=== PATIENT | female | born 1995 | race African-American/Black ===

== ENCOUNTER 2017-08-27 10:52 | Emergency (ER) | payer SELFPAY ==
[~2017-08-27] VITALS: Ht 154.9 cm; Wt 60.0 kg
[2017-08-27 10:55] VITALS: TEMP 36.7; Ht 154.9 cm; Wt 60.0 kg
[2017-08-27] MEDS ORDERED: BCPILLS PO (11:07)
[2017-08-27] MEDS ORDERED: DIPH25CA5 PO (11:09)
[2017-08-27] MEDS ORDERED: ACETAMINOPHEN 500 MG TAB PO STA (11:20)
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
--- NOTE | 2017-08-27 12:08 | DIAGNOSTIC IMAGING REPORT ---
CT FACIAL BONES-MXILLOFAC WITHOUT CT DOSE: 768.72 mGy.cm CLINICAL HISTORY: Left orbital pain status post trauma COMPARISON STUDY: No previous studies for comparison. TECHNIQUE: Helical images were acquired in the transverse plane. The study was reviewed and analyzed on the independent 3-D workstation. A dose lowering technique was utilized adhering to the principles of ALARA. The pterygoid plates appear intact. The zygomatic arches appear intact. The globes appear intact. There is no evidence of orbital emphysema. There is left-sided periorbital edema. There is a left orbital floor fracture with 8 mm of depression. There is herniation of orbital fat into the left maxillary sinus. There is a left maxillary sinus air-fluid level. The lamina papyracea appears intact. The mandibular condyles appear intact. IMPRESSION: 1. Depressed (8 mm) left orbital floor fracture with herniation of orbital fat into the left maxillary sinus. 2. No additional facial fractures identified 3. Mild left periorbital edema Electronically signed by: Mateo Ann M.D. 08/27/2017 12:07 PM Dictated Date/Time: 08/27/2017 12:04 PM
--- NOTE | 2017-08-27 12:38 | DIAGNOSTIC IMAGING REPORT ---
L HAND MIN 3 VIEWS ROUTINE CLINICAL HISTORY: Left hand pain status post trauma COMPARISON: None. DISCUSSION: There is a nondisplaced acute intra-articular fracture involving the base of the distal phalanx of the third finger. No additional fractures are visualized. IMPRESSION: Acute nondisplaced intra-articular fracture involving the radial base of the distal phalanx of the third finger Electronically signed by: Mateo Ann M.D. 08/27/2017 12:36 PM Dictated Date/Time: 08/27/2017 12:35 PM
--- NOTE | 2017-08-27 12:38 | DIAGNOSTIC IMAGING REPORT ---
R FOREARM 2 VIEWS ROUTINE CLINICAL HISTORY: Right forearm pain status post trauma COMPARISON: None. DISCUSSION: No fractures or dislocations are visualized. IMPRESSION: No fractures or dislocations identified. Electronically signed by: Mateo Ann M.D. 08/27/2017 12:37 PM Dictated Date/Time: 08/27/2017 12:37 PM
--- NOTE | 2017-08-27 12:39 | DIAGNOSTIC IMAGING REPORT ---
R KNEE 3 VIEWS CLINICAL HISTORY: Right knee pain status post trauma COMPARISON: None. DISCUSSION: No fractures or dislocations are visualized. IMPRESSION: No fractures identified. Electronically signed by: Mateo Ann M.D. 08/27/2017 12:37 PM Dictated Date/Time: 08/27/2017 12:37 PM
[2017-08-27] MEDS ORDERED: OXYCODONE HCL IR 5 MG TAB (IMMEDIATE RELEASE) PO STA (12:40)
[2017-08-27] MEDS ORDERED: AMOXICIL/CLAVU 875MG HOME PACK PO STA (13:44)
[2017-08-27] MEDS ORDERED: AMOXICILLIN/CLAVULANATE TAB 875 MG TAB PO STA (13:44)
[2017-08-27] MEDS ORDERED: CIPROFLOXACIN HCL 0.3% OP SOLN 2.5 ML BTL OP STA (13:45)
[2017-08-27] MEDS ORDERED: AMOX875T PO (13:47)
[2017-08-27] MEDS ORDERED: HYDR-5688 PO (13:47)
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
[2017-08-27 14:34] VITALS: BP 127/76; PULSE 92; O2SAT 96
== END 2017-08-27 14:30 | disposition home or self-care (01) ==
LOC: C.EDB 10:55 → C.EDD 14:30
DX: S02.32XA Fracture of orbital floor, left side, initial encounter for closed fracture (principal); S62.668A Nondisplaced fracture of distal phalanx of other finger, initial encounter for closed fracture; H57.12 Ocular pain, left eye; S50.11XA Contusion of right forearm, initial encounter; S80.01XA Contusion of right knee, initial encounter; S80.02XA Contusion of left knee, initial encounter; S01.81XA Laceration without foreign body of other part of head, initial encounter; S05.02XA Injury of conjunctiva and corneal abrasion without foreign body, left eye, initial encounter; Y04.0XXA Assault by unarmed brawl or fight, initial encounter

== ENCOUNTER 2019-12-17 17:31 | Inpatient (IN) ==
[2019-12-17] MEDS ORDERED: OXYTOCIN 30 UNITS/500 ML BAG IV PRN (17:59)
[2019-12-17 18:55] LABS: Hematocrit (blood only) 39.6 % (37-47); Mean Corpuscular Hemoglobin 30.3 pg (25-34); Mean Corpuscular Hgb Conc 32.8 g/dL (32-36); Mean Corpuscular Volume 92.3 fL (80-100); Mean Platelet Volume 12.1 fL (7.4-10.4); Platelet Count 130 K/uL (130-400); Platelet Estimate Normal (Normal); RDW Coefficient of Variation 15.2 % (11.5-14.5); Red Blood Count 4.29 M/uL (4.2-5.4)
[2019-12-17] MEDS: LACTATED RINGER'S 1,000 ML IV PRN ×2 (19:15→22:30)
[2019-12-17] MEDS ORDERED: ePHEDrine sulfate 50 MG/ML AMP ONE (22:15)
[2019-12-17] MEDS ORDERED: BUPIVACAINE 0.25% 30 ML VIAL ONE (22:15)
[2019-12-17] MEDS ORDERED: fentaNYL 2MCG/ML ROPIV 1.25MG/ML 100 ML BAG EPI ONE (22:16)
[2019-12-17] MEDS ORDERED: fentaNYL citrate 100 MCG/2 ML VIAL ONE (22:16)
--- NOTE | 2019-12-17 22:18 | Obstetrical Progress Note ---
Date of Service December 17, 2019 Assessment & Plan Admission and Anticipated Discharge Date Admission Date: December 17, 2019 Subjective Met pt Reviewed PNC with pt and spouse /-1 FHr CAT1 Ctx 2-4mins Results & Data ([facility]) Vital Signs (Past 12 Hours) Vital Signs Temp Pulse Resp BP Pulse Ox 12/17/19 22:12 107 H 97 12/17/19 22:07 106 H 99 12/17/19 21:30 18 12/17/19 21:00 37.0 C 18 12/17/19 20:30 18 12/17/19 19:53 18 12/17/19 19:17 37.0 C 18 12/17/19 19:12 37.0 C 90 18 134/84 12/17/19 18:17 98 H 136/99 12/17/19 18:00 37.0 C 98 H 20 136/99
--- NOTE | 2019-12-17 23:00 | Anesthesiology Consultation ---
Date of Service December 17, 2019 Assessment & Plan (1) Encounter for pre-operative examination: Chart Review Chart Review: Patient NOT seen in Pre Admission Testing and Acceptable Risk for Labor Epidural Consults Requested none ASA ASA2 Proposed Anesthesia Anesthesia Type: Labor Epidural Risk / Benefits Reviewed With: PT / POA / Parent / Guardian, Accepts Plan and Informed Consent Obtained History Height/Weight Height: 5 ft 1 in Weight: 95.708 kg Allergies Allergy/AdvReac Type Severity Reaction Status Date / Time No Known Drug Allergies Allergy Unknown Verified 11/25/19 20:34 Medications Home Medications Medication Instructions Recorded Confirmed Last Taken magnesium oxide 400 mg PO HS #30 tab 09/21/19 12/17/19 Unknown PNV cmb#95-ferrous fumarate-FA 1 tab PO DAILY 11/25/19 12/17/19 Unknown [] valacyclovir [Valtrex] 500 mg PO DIRECTED 11/25/19 12/17/19 12/17/19 08:00 Active Medications Generic Name Dose Route Start Last Admin Trade Name Freq PRN Reason Stop Dose Admin Lactated Ringer's 1,000 mls @ 125 mls/hr 12/17/19 17:59 12/17/19 22:30 Lr IV 12/19/19 17:58 125 mls/hr .Q8H PRN Administration L&D Protocol Protocol NPO Date Last Intake of Fluids: 12/17/19 Time Last Intake of Fluids: 22:58 Date Last Intake of Solids: 12/17/19 Time Last Intake of Solids: 16:30 Past Medical History Medical History Adopted Hx of herpes genitalis Numbness of face LEFT BOTTOM - PER PT HAS BEEN NUMB SINCE WISDOM TOOTH EXTRACTIION Seasonal allergies Exercise / Class Metabolic Activity II 4-5 Yardwork/Stairs/Walk up hill Past Surgical History Surgical History Hx of wisdom tooth extraction S/P dilation and curettage Dr. Hassan. S/P MAB Past Anesthesia History No Hx of Anesthesia Complications History of PONV No Hx of PONV Social History Smoking Status: Never smoker Hx Alcohol Use: No Alcohol type: beer, wine and hard liquor alcohol intake frequency: a few times a month Hx Substance Use: No substance use type: does not use Last Used Substance: Days (ago) Review of Systems Negative for chest pain or shortness of breath. Patient denies active symptoms of GERD. Patient denies history of abnormal bleeding or bleeding disorder. Patient denies active use of anticoagulants other than low dose aspirin. Patient denies numbness, tingling or weakness in lower extremities. Physical Exam Vital Signs Last Vital Signs Temp 37.0 C 12/17/19 21:00 Pulse 104 H 12/17/19 22:56 Resp 18 12/17/19 22:00 BP 134/84 12/17/19 19:12 Pulse Ox 97 12/17/19 22:56 Constitutional not obese (Gravid uterus) ENMT Mouth: no TMJ abnormality and oral opening not small Thyromental Distance: > or= 3.5 Finger Breadths Mallampati Class: II Neck normal visual inspection; neck extension not limited Respiratory normal respiratory effort Auscultation: lungs clear to auscultation bilaterally Cardiovascular Rate/Rhythm: regular rate and regular rhythm Heart Sounds: no murmur Neurologic moves all extremities Motor/Sensory: no sensory deficit Psychiatric Orientation: alert and oriented x 3 Testing Laboratory Results 12/17/19 18:13
[2019-12-17] MEDS ORDERED: ONDANSETRON INJ 2 MG/ML 2 ML VIAL IV PRN (23:39)
[2019-12-17] MEDS ORDERED: fentaNYL 2MCG/ML ROPIV 1.25MG/ML 100 ML BAG EPI PRN (23:39)
[2019-12-17] MEDS ORDERED: ePHEDrine sulfate 50 MG/ML AMP IV PRN (23:39)
[2019-12-17] MEDS ORDERED: DiphenhydrAMINE HCL 50 MG/ML VIAL IV PRN (23:39)
[2019-12-17] MEDS ORDERED: NALOXONE HCL 1 MG in SODIUM CHLORIDE 0.9% 1000ML 1,000 ML IV PRN (23:39)
[2019-12-17] MEDS ORDERED: NALOXONE HCL 0.4 MG/1 ML VIAL/CARP IV PRN (23:39)
--- NOTE | 2019-12-18 | Obstetrical Progress Note ---
Date of Service December 17, 2019 Assessment & Plan Admission and Anticipated Discharge Date Admission Date: December 17, 2019 Subjective Pt doing well No complaints Epidural analgesia in place FHR; CAT1 Ctx; 1-3 VE; 4cm/90/-1 Unchanged since admission AROM- clear Results & Data ([facility]) Vital Signs (Past 12 Hours) Vital Signs Temp Pulse Resp BP Pulse Ox 12/17/19 23:57 100 H 133/65 12/17/19 23:56 99 H 98 12/17/19 23:51 112 H 98 12/17/19 23:46 105 H 98 12/17/19 23:41 113 H 127/59 L 98 12/17/19 23:37 122 H 126/60 12/17/19 23:36 120 H 98 12/17/19 23:35 114 H 136/63 12/17/19 23:33 37.2 C 18 12/17/19 23:31 106 H 98 12/17/19 23:30 112 H 120/60 12/17/19 23:28 116 H 131/60 12/17/19 23:27 111 H 125/58 L 12/17/19 23:26 115 H 99 12/17/19 23:24 117 H 119/56 L 12/17/19 23:22 126 H 132/58 L 12/17/19 23:21 123 H 98 12/17/19 23:20 125 H 139/68 12/17/19 23:16 133 H 99 12/17/19 23:11 129 H 99 12/17/19 23:06 118 H 99 12/17/19 23:01 108 H 99 12/17/19 22:56 104 H 97 12/17/19 22:51 103 H 98 12/17/19 22:46 107 H 98 12/17/19 22:37 104 H 98 12/17/19 22:32 94 H 97 12/17/19 22:30 18 12/17/19 22:27 107 H 97 12/17/19 22:22 112 H 98 12/17/19 22:17 96 H 98 12/17/19 22:12 107 H 97 12/17/19 22:07 106 H 99 12/17/19 22:00 18 12/17/19 21:30 18 12/17/19 21:00 37.0 C 12/17/19 20:30 18 12/17/19 19:53 18 12/17/19 19:17 37.0 C 18 12/17/19 19:12 37.0 C 90 18 134/84 12/17/19 18:17 98 H 136/99 12/17/19 18:00 37.0 C 98 H 20 136/99
[2019-12-18] MEDS ORDERED: ACETAMINOPHEN 325 MG TAB PO PRN (04:33)
[2019-12-18] MEDS ORDERED: ACETAMINOPHEN 325 MG TAB ONE (04:36)
[2019-12-18] MEDS: LACTATED RINGER'S 1,000 ML IV PRN (04:47)
[2019-12-18] MEDS ORDERED: CITRIC ACID/SODIUM CITRATE 15 ML UDC PO SCH (06:00)
[2019-12-18] MEDS ORDERED: CEFAZOLIN 2000MG 2,000 MG/15 ML SYR IV SCH (06:00)
--- NOTE | 2019-12-18 06:26 | Obstetrical Progress Note ---
Date of Service December 18, 2019 Assessment & Plan Admission and Anticipated Discharge Date Admission Date: December 17, 2019 Subjective Pt doing well Ctx 1-3mins VE /-2 unchanged after 12 hrs temp is now 100.0 FHr; CATII A/P FTP discussed c/sec with pt pt agrees 'consent obtained Results & Data ([facility]) Vital Signs (Past 12 Hours) Vital Signs Temp Pulse Resp BP Pulse Ox 12/18/19 06:21 119 H 97 12/18/19 06:16 118 H 98 12/18/19 06:11 107 H 97 12/18/19 06:10 108 H 112/56 L 12/18/19 06:06 109 H 97 12/18/19 06:01 112 H 97 12/18/19 06:00 18 12/18/19 05:57 106 H 116/58 L 12/18/19 05:56 111 H 97 12/18/19 05:51 108 H 97 12/18/19 05:46 110 H 97 12/18/19 05:41 110 H 153/64 H 96 12/18/19 05:36 114 H 97 12/18/19 05:31 108 H 97 12/18/19 05:30 37.5 C 18 12/18/19 05:26 112 H 97 12/18/19 05:25 116 H 134/51 L 12/18/19 05:21 112 H 98 12/18/19 05:16 108 H 98 12/18/19 05:11 100 H 98 12/18/19 05:10 102 H 108/68 12/18/19 05:06 104 H 98 12/18/19 05:01 105 H 98 12/18/19 05:00 18 12/18/19 04:57 101 H 117/54 L 12/18/19 04:56 100 H 98 12/18/19 04:51 101 H 98 12/18/19 04:46 106 H 99 12/18/19 04:42 101 H 119/63 12/18/19 04:41 101 H 99 12/18/19 04:36 111 H 99 12/18/19 04:31 114 H 97 12/18/19 04:30 18 12/18/19 04:28 113 H 122/62 12/18/19 04:26 111 H 100 12/18/19 04:22 37.8 C H 07/29/20 04:21 111 H 98 12/18/19 04:16 118 H 98 12/18/19 04:12 112 H 126/66 12/18/19 04:11 112 H 97 12/18/19 04:06 115 H 97 12/18/19 04:01 113 H 97 12/18/19 04:00 18 12/18/19 03:56 107 H 126/60 97 12/18/19 03:51 114 H 96 12/18/19 03:46 113 H 97 12/18/19 03:41 105 H 125/70 98 12/18/19 03:36 109 H 95 12/18/19 03:31 110 H 97 12/18/19 03:30 18 12/18/19 03:27 109 H 132/72 12/18/19 03:26 104 H 97 12/18/19 03:21 113 H 97 12/18/19 03:16 119 H 100 12/18/19 03:11 98 H 133/72 97 12/18/19 03:06 100 H 98 12/18/19 03:01 104 H 98 12/18/19 03:00 18 12/18/19 02:56 104 H 99 12/18/19 02:55 100 H 133/61 12/18/19 02:51 100 H 97 12/18/19 02:46 98 H 99 12/18/19 02:41 105 H 131/72 97 12/18/19 02:36 102 H 97 12/18/19 02:31 103 H 98 12/18/19 02:30 18 12/18/19 02:26 99 H 98 12/18/19 02:25 102 H 135/71 12/18/19 02:21 104 H 98 12/18/19 02:16 101 H 99 12/18/19 02:12 97 H 135/67 12/18/19 02:11 95 H 99 12/18/19 02:06 96 H 99 12/18/19 02:01 106 H 98 12/18/19 02:00 37.2 C 18 12/18/19 01:56 92 H 107/57 L 97 12/18/19 01:51 91 H 97 12/18/19 01:46 86 98 12/18/19 01:41 90 110/58 L 97 12/18/19 01:36 90 97 12/18/19 01:31 92 H 97 12/18/19 01:30 18 12/18/19 01:26 91 H 97 12/18/19 01:25 99 H 103/55 L 12/18/19 01:21 90 97 12/18/19 01:16 89 97 12/18/19 01:12 104 H 110/54 L 12/18/19 01:11 101 H 99 12/18/19 01:06 87 96 12/18/19 01:01 86 97 12/18/19 01:00 18 12/18/19 00:57 98 H 102/53 L 12/18/19 00:56 108 H 96 12/18/19 00:51 99 H 96 12/18/19 00:46 89 97 12/18/19 00:42 86 101/54 L 12/18/19 00:41 94 H 97 12/18/19 00:36 91 H 98 12/18/19 00:31 91 H 97 12/18/19 00:30 18 12/18/19 00:26 77 97 12/18/19 00:25 82 110/52 L 12/18/19 00:21 93 H 98 12/18/19 00:16 107 H 97 12/18/19 00:11 104 H 97 12/18/19 00:10 99 H 124/60 12/18/19 00:06 91 H 98 12/18/19 00:01 106 H 98 12/18/19 00:00 12/17/19 23:57 100 H 133/65 12/17/19 23:56 99 H 98 12/17/19 23:55 18 12/17/19 23:51 112 H 98 12/17/19 23:50 18 12/17/19 23:46 105 H 98 12/17/19 23:45 18 12/17/19 23:41 113 H 127/59 L 98 12/17/19 23:40 18 12/17/19 23:38 18 12/17/19 23:37 122 H 126/60 12/17/19 23:36 120 H 18 98 12/17/19 23:35 114 H 136/63 12/17/19 23:34 18 12/17/19 23:33 37.2 C 18 12/17/19 23:32 18 07/28/20 23:31 106 H 98 12/17/19 23:30 112 H 18 120/60 12/17/19 23:28 116 H 18 131/60 12/17/19 23:27 111 H 125/58 L 12/17/19 23:26 115 H 99 12/17/19 23:24 117 H 119/56 L 12/17/19 23:22 126 H 132/58 L 12/17/19 23:21 123 H 98 12/17/19 23:20 125 H 139/68 12/17/19 23:16 133 H 99 12/17/19 23:11 129 H 99 12/17/19 23:06 118 H 99 12/17/19 23:01 108 H 99 12/17/19 22:56 104 H 97 12/17/19 22:51 103 H 98 12/17/19 22:46 107 H 98 12/17/19 22:37 104 H 98 12/17/19 22:32 94 H 97 12/17/19 22:30 18 12/17/19 22:27 107 H 97 12/17/19 22:22 112 H 98 12/17/19 22:17 96 H 98 12/17/19 22:12 107 H 97 12/17/19 22:07 106 H 99 12/17/19 22:00 18 12/17/19 21:30 18 12/17/19 21:00 37.0 C 18 12/17/19 20:30 18 12/17/19 19:53 18 12/17/19 19:17 37.0 C 18 12/17/19 19:12 37.0 C 90 18 134/84
[2019-12-18] MEDS ORDERED: LIDOCAINE/EPINEPHRINE 2% 1:200,000 20 ML SDV ONE (09:24)
[2019-12-18] MEDS ORDERED: OXYTOCIN 10 UNITS/ML VIAL ONE ×2 (09:24→10:40)
[2019-12-18] MEDS ORDERED: fentaNYL citrate 100 MCG/2 ML VIAL ONE (09:24)
[2019-12-18] MEDS ORDERED: PHENYLEPHRINE 100MCG/ML 5ML SYR ONE (09:44)
[2019-12-18] MEDS ORDERED: MoRPHine SULFATE PF 1 MG/ML 10 ML AMP/VIAL ONE (09:51)
[2019-12-18] MEDS ORDERED: ESMOLOL HCL INJ 10 MG/ML 10ML VIAL IV ONE (10:10)
[2019-12-18] MEDS ORDERED: MEPERIDINE HCL 25 MG/ML CARP/VIAL ONE (10:23)
[2019-12-18] MEDS ORDERED: METOPROLOL TARTRATE 1 MG/ML VIAL IV ONE (10:25)
[2019-12-18] MEDS ORDERED: miSOPROStoL 200 MCG TAB ONE (10:43)
[2019-12-18] MEDS ORDERED: HYDROCORTISONE ACETATE 25 MG SUPP PR PRN (10:53)
[2019-12-18] MEDS ORDERED: DIPHTHERIA/TETANUS/PERTUSSIS 0.5 ML SYR/VIAL IM ONE (10:53)
[2019-12-18] MEDS ORDERED: MAGNESIUM HYDROXIDE SUSP 30 ML UDC PO PRN (10:53)
[2019-12-18] MEDS ORDERED: SENNA 8.6 MG TAB PO PRN (10:53)
[2019-12-18] MEDS ORDERED: SUPERCREAM 0.870% 15 GM JAR EXT PRN (10:53)
[2019-12-18] MEDS ORDERED: BENZOCAINE 20% AER SPR 82.5 GM CAN EXT PRN (10:53)
--- NOTE | 2019-12-18 10:55 | Post Operative Brief Note ---
Immediate Post Op Note v1 Date of Surgery December 18, 2019 Pre & Post Diagnosis Operation Date: 12/18/19 06:40 Pre-Op Diagnosis: Failure to progress. Post-Op Diagnosis: Same as above. Delivery of live male child at 1004. I identified the patient and participated in the time-out.: Yes Procedure Operation Date: 12/18/19 06:40 Actual Procedures p Section in LD(Bilateral) - Gualberto Pelaez MD Surgeon Gualberto Pelaez MD Artificial Breeding Distributor dr vanegas Estimated Blood Loss 600 Findings Consistent with Post-Op Diagnosis Drains Capellan Catheter (placed in labor and delivery)
[2019-12-18] MEDS ORDERED: NALOXONE HCL 0.08 MG in SYRINGE 1.8 ML IV PRN (10:58)
[2019-12-18] MEDS ORDERED: ePHEDrine sulfate 50 MG/ML AMP IV PRN (10:58)
[2019-12-18] MEDS ORDERED: MoRPHine SULFATE PF 1 MG/ML 10 ML AMP/VIAL EPI ONE (10:58)
[2019-12-18] MEDS ORDERED: ONDANSETRON INJ 2 MG/ML 2 ML VIAL IV PRN (10:58)
[2019-12-18] MEDS ORDERED: DiphenhydrAMINE HCL 50 MG/ML VIAL IV PRN (10:58)
[2019-12-18] MEDS ORDERED: HYDROmorphone INJ 0.5 MG/0.5 ML SYR IV PRN (10:58)
[2019-12-18] MEDS ORDERED: LACTATED RINGER'S 500 ML IV PRN (10:58)
[2019-12-18] MEDS ORDERED: NALOXONE HCL 0.4 MG/1 ML VIAL/CARP IV PRN (10:58)
[2019-12-18] MEDS ORDERED: NALOXONE HCL 1 MG in SODIUM CHLORIDE 0.9% 1000ML 1,000 ML IV PRN (10:58)
[2019-12-18] MEDS ORDERED: NO NARCOTICS OR SEDATIVES SCH (11:00)
[2019-12-18] MEDS ORDERED: SODIUM CHLORIDE 0.9% 1000ML 1,000 ML IV SCH (11:00)
[2019-12-18] MEDS ORDERED: LACTATED RINGER'S 1,000 ML IV SCH ×2 (11:00→12:45)
[2019-12-18] MEDS ORDERED: OXYTOCIN 10 UNITS/ML VIAL IM ONE ×2 (12:21→12:28)
--- NOTE | 2019-12-18 12:24 | Anesthesiology Progress Note ---
Date of Service December 18, 2019 Anesthesia Post Procedure Vital Signs Vital Signs: Temp Pulse Resp BP Pulse Ox 12/18/19 12:20 113 H 98 12/18/19 12:15 106 H 142/73 H 100 12/18/19 12:10 121 H 97 12/18/19 12:05 115 H 144/78 H 97 12/18/19 12:00 118 H 98 12/18/19 11:55 127 H 20 143/82 H 95 12/18/19 11:50 113 H 98 12/18/19 11:45 127 H 20 102/70 97 12/18/19 11:44 116 H 86 L 12/18/19 11:39 109 H 100 12/18/19 11:35 125 H 16 131/57 L 12/18/19 11:34 119 H 91 12/18/19 11:29 113 H 94 12/18/19 11:25 111 H 20 132/60 12/18/19 11:24 112 H 100 12/18/19 11:19 118 H 100 12/18/19 11:15 114 H 18 132/69 12/18/19 11:14 116 H 100 12/18/19 11:09 115 H 100 12/18/19 11:05 120 H 20 139/59 L 12/18/19 11:04 124 H 100 12/18/19 10:59 114 H 100 12/18/19 10:55 37.2 C 116 H 20 113/54 L 100 12/18/19 10:54 116 H 99 12/18/19 09:31 115 H 98 12/18/19 09:26 114 H 134/81 98 12/18/19 09:21 107 H 96 12/18/19 09:16 108 H 97 12/18/19 09:11 110 H 138/72 98 12/18/19 09:10 37.8 C H 18 12/18/19 09:06 122 H 98 12/18/19 09:01 117 H 98 12/18/19 08:56 106 H 98 12/18/19 08:55 116 H 125/64 12/18/19 08:51 114 H 98 12/18/19 08:46 110 H 97 12/18/19 08:42 101 H 128/71 12/18/19 08:41 105 H 97 12/18/19 08:36 105 H 97 12/18/19 08:31 110 H 98 12/18/19 08:26 112 H 98 12/18/19 08:25 106 H 125/62 12/18/19 08:21 102 H 98 12/18/19 08:16 103 H 98 12/18/19 08:11 99 H 98 12/18/19 08:10 103 H 121/55 L 12/18/19 08:06 104 H 97 12/18/19 08:01 104 H 97 12/18/19 07:57 99 H 127/61 12/18/19 07:56 100 H 98 12/18/19 07:51 98 H 98 12/18/19 07:46 107 H 97 12/18/19 07:42 101 H 129/61 12/18/19 07:41 102 H 97 12/18/19 07:36 107 H 98 12/18/19 07:31 104 H 98 12/18/19 07:27 99 H 122/59 L 12/18/19 07:26 100 H 97 12/18/19 07:21 105 H 97 12/18/19 07:16 111 H 98 12/18/19 07:11 110 H 99 12/18/19 07:10 37.7 C H 116 H 16 128/80 12/18/19 07:06 109 H 97 12/18/19 07:01 115 H 98 12/18/19 07:00 18 12/18/19 06:56 115 H 98 12/18/19 06:51 104 H 98 12/18/19 06:46 115 H 98 12/18/19 06:41 118 H 111/53 L 97 12/18/19 06:36 118 H 97 12/18/19 06:31 120 H 98 12/18/19 06:30 18 12/18/19 06:26 125 H 136/69 97 12/18/19 06:21 119 H 97 12/18/19 06:16 118 H 98 12/18/19 06:11 107 H 97 12/18/19 06:10 108 H 112/56 L 12/18/19 06:06 109 H 97 12/18/19 06:01 112 H 97 12/18/19 06:00 18 12/18/19 05:57 106 H 116/58 L 12/18/19 05:56 111 H 97 12/18/19 05:51 108 H 97 12/18/19 05:46 110 H 97 12/18/19 05:41 110 H 153/64 H 96 12/18/19 05:36 114 H 97 12/18/19 05:31 108 H 97 12/18/19 05:30 37.5 C 18 12/18/19 05:26 112 H 97 12/18/19 05:25 116 H 134/51 L 12/18/19 05:21 112 H 98 12/18/19 05:16 108 H 98 12/18/19 05:11 100 H 98 12/18/19 05:10 102 H 108/68 12/18/19 05:06 104 H 98 12/18/19 05:01 105 H 98 12/18/19 05:00 18 12/18/19 04:57 101 H 117/54 L 12/18/19 04:56 100 H 98 12/18/19 04:51 101 H 98 12/18/19 04:46 106 H 99 12/18/19 04:42 101 H 119/63 12/18/19 04:41 101 H 99 12/18/19 04:36 111 H 99 12/18/19 04:31 114 H 97 12/18/19 04:30 18 12/18/19 04:28 113 H 122/62 12/18/19 04:26 111 H 100 12/18/19 04:22 37.8 C H 12/18/19 04:21 111 H 98 12/18/19 04:16 118 H 98 12/18/19 04:12 112 H 126/66 12/18/19 04:11 112 H 97 12/18/19 04:06 115 H 97 12/18/19 04:01 113 H 97 12/18/19 04:00 18 12/18/19 03:56 107 H 126/60 97 12/18/19 03:51 114 H 96 12/18/19 03:46 113 H 97 12/18/19 03:41 105 H 125/70 98 12/18/19 03:36 109 H 95 12/18/19 03:31 110 H 97 12/18/19 03:30 18 12/18/19 03:27 109 H 132/72 12/18/19 03:26 104 H 97 12/18/19 03:21 113 H 97 12/18/19 03:16 119 H 100 12/18/19 03:11 98 H 133/72 97 12/18/19 03:06 100 H 98 12/18/19 03:01 104 H 98 12/18/19 03:00 18 12/18/19 02:56 104 H 99 12/18/19 02:55 100 H 133/61 12/18/19 02:51 100 H 97 12/18/19 02:46 98 H 99 12/18/19 02:41 105 H 131/72 97 12/18/19 02:36 102 H 97 12/18/19 02:31 103 H 98 12/18/19 02:30 18 12/18/19 02:26 99 H 98 12/18/19 02:25 102 H 135/71 12/18/19 02:21 104 H 98 12/18/19 02:16 101 H 99 12/18/19 02:12 97 H 135/67 12/18/19 02:11 95 H 99 12/18/19 02:06 96 H 99 12/18/19 02:01 106 H 98 12/18/19 02:00 37.2 C 18 12/18/19 01:56 92 H 107/57 L 97 12/18/19 01:51 91 H 97 12/18/19 01:46 86 98 12/18/19 01:41 90 110/58 L 97 12/18/19 01:36 90 97 12/18/19 01:31 92 H 97 12/18/19 01:30 18 12/18/19 01:26 91 H 97 12/18/19 01:25 99 H 103/55 L 12/18/19 01:21 90 97 12/18/19 01:16 89 97 12/18/19 01:12 104 H 110/54 L 12/18/19 01:11 101 H 99 12/18/19 01:06 87 96 12/18/19 01:01 86 97 12/18/19 01:00 18 12/18/19 00:57 98 H 102/53 L 12/18/19 00:56 108 H 96 12/18/19 00:51 99 H 96 12/18/19 00:46 89 97 12/18/19 00:42 86 101/54 L 12/18/19 00:41 94 H 97 12/18/19 00:36 91 H 98 12/18/19 00:31 91 H 97 12/18/19 00:30 18 12/18/19 00:26 77 97 12/18/19 00:25 82 110/52 L 12/18/19 00:21 93 H 98 12/18/19 00:16 107 H 97 12/18/19 00:11 104 H 97 12/18/19 00:10 99 H 124/60 12/18/19 00:06 91 H 98 12/18/19 00:01 106 H 98 12/18/19 00:00 18 12/17/19 23:57 100 H 133/65 12/17/19 23:56 99 H 98 12/17/19 23:55 18 12/17/19 23:51 112 H 98 12/17/19 23:50 18 12/17/19 23:46 105 H 98 12/17/19 23:45 18 12/17/19 23:41 113 H 127/59 L 98 12/17/19 23:40 18 12/17/19 23:38 18 12/17/19 23:37 122 H 126/60 12/17/19 23:36 120 H 18 98 12/17/19 23:35 114 H 136/63 12/17/19 23:34 18 12/17/19 23:33 37.2 C 18 12/17/19 23:32 18 12/17/19 23:31 106 H 98 12/17/19 23:30 112 H 18 120/60 12/17/19 23:28 116 H 18 131/60 12/17/19 23:27 111 H 125/58 L 12/17/19 23:26 115 H 99 12/17/19 23:24 117 H 119/56 L 12/17/19 23:22 126 H 132/58 L 12/17/19 23:21 123 H 98 12/17/19 23:20 125 H 139/68 12/17/19 23:16 133 H 99 12/17/19 23:11 129 H 99 12/17/19 23:06 118 H 99 12/17/19 23:01 108 H 99 12/17/19 22:56 104 H 97 12/17/19 22:51 103 H 98 12/17/19 22:46 107 H 98 12/17/19 22:37 104 H 98 12/17/19 22:32 94 H 97 12/17/19 22:30 18 12/17/19 22:27 107 H 97 12/17/19 22:22 112 H 98 12/17/19 22:17 96 H 98 12/17/19 22:12 107 H 97 12/17/19 22:07 106 H 99 12/17/19 22:00 18 12/17/19 21:30 18 12/17/19 21:00 37.0 C 18 12/17/19 20:30 18 12/17/19 19:53 18 12/17/19 19:17 37.0 C 18 12/17/19 19:12 37.0 C 90 18 134/84 12/17/19 18:17 98 H 136/99 12/17/19 18:00 37.0 C 98 H 20 136/99 Pain Intensity Abdomen: Pain Intensity: 1 Transfer of Care Handoff Completed per policy Notes Mental Status: alert / awake / arousable Patient Amnestic to Procedure: Yes Nausea / Vomiting: adequately controlled Pain: adequately controlled Airway Patency, RR, SpO2: stable & adequate BP & HR: stable & adequate Hydration State: stable & adequate Neuraxial Anesthesia: was administered and sensory block is resolving Anesthetic Complications: no major complications apparent and Pt Satisfied with anesthetic care
[2019-12-18] MEDS ORDERED: miSOPROStoL 200 MCG TAB PR ONE (12:27)
[2019-12-18] MEDS ORDERED: miSOPROStoL 200 MCG TAB PR SCH (12:30)
[2019-12-18] MEDS: OXYTOCIN 20 UNITS in LACTATED RINGER'S 1,000 ML IV SCH ×2 (13:29→21:26)
--- NOTE | 2019-12-18 13:38 | Operative Report (OR) ---
DATE OF OPERATION: 12/18/2019 INDICATION FOR SURGERY: A 24-year-old at term who presented to labor and delivery in labor. On arrival to labor and delivery she was 4 cm dilated. The patient continued to have contractions; artificial rupture of membranes was performed. The patient remained 4 cm for 12 hours. Decision was therefore made to perform section for failure to progress. PREOPERATIVE DIAGNOSES: Failure to progress. POSTOPERATIVE DIAGNOSES: Same plus transverse lie. SURGEON: Gualberto Pelaez MD ASSOCIATE TECHNICIAN: Dr. Sharp. ESTIMATED BLOOD LOSS: 600 mL. INTRAVENOUS FLUIDS: 3600 mL. URINE OUTPUT: 200 mL clear urine at end of procedure. SURGERY: section via Pfannenstiel. COMPLICATIONS: None. DRAINS: Capellan catheter. FINDINGS: Live infant in transverse presentation. Uterus, adnexa and pelvis appeared unremarkable. PATHOLOGY: Placenta. DISPOSITION: Stable to recovery room. DESCRIPTION OF PROCEDURE: The patient was taken to the operating room where she was prepped and draped in normal sterile fashion in dorsal lithotomy position. A Pfannenstiel was done and carried down to the fascia. Fascia was incised in the midline and extended laterally on both sides. Fascia was sharply dissected off the rectus abdominus muscles superiorly and inferiorly. Peritoneum was identified and entered sharply. Once inside the abdomen, findings were as dictated above. An Arvin retractor was used for retraction. Vesicouterine peritoneum was sharply dissected off the lower segment of the uterus. A low transverse uterine incision was made and carried to both sides using bandage scissors. is delivered and cord was clamped and cut and handed over to the waiting pediatric team. Details of infant's information is in the pediatric record. Placenta was manually removed. Uterus was exteriorized and cleared of all clots and debris. Uterus was closed in 2 layers with Vicryl suture. There was good hemostasis. Copious amount of irrigation used to irrigate the abdomen. Vesicouterine peritoneum was reapproximated with plain suture. Once again, hemostasis was established. Peritoneum was closed in a running fashion with plain suture and fascia was closed in a locking fashion with Vicryl stitch. SubQ was reapproximated using plain suture and skin was closed with janice. All instruments were removed from the abdomen including sponges, needles and retractors and accounted for x2. The patient and baby are stable in recovery. I attest to the content of the Intraoperative Record and any orders documented therein. Any exception s are noted below.
[2019-12-18] MEDS: KETOROLAC 30 MG/ML VIAL IV PRN ×2 (14:22→21:15)
[2019-12-18] MEDS: SIMETHICONE 80 MG CHEW PO SCH ×3 (16:49→21:14)
[2019-12-18] MEDS: DOCUSATE SODIUM 100 MG CAP PO SCH (21:14)
[2019-12-18 21:53] LABS: Basophils # (auto) 0.02 K/uL (0-0.2); Basophils % (auto) 0.1 %; Eosinophils # (auto) 0.01 K/uL (0-0.5); Eosinophils % (auto) 0.1 %; Hematocrit (blood only) 36.7 % (37-47); Immature Granulocytes # (auto) 0.11 K/uL (0.00-0.02); Immature Granulocytes % (auto) 0.7 %; Lymphocytes # (auto) 1.85 K/uL (1.2-3.4); Lymphocytes % (auto) 12.2 %; Mean Corpuscular Hemoglobin 30.2 pg (25-34); Mean Corpuscular Volume 92.2 fL (80-100); Mean Platelet Volume 11.9 fL (7.4-10.4); Monocytes # (auto) 1.13 K/uL (0.11-0.59); Monocytes % (auto) 7.5 %; Neutrophils # (auto) 12.02 K/uL (1.4-6.5); Neutrophils % (auto) 79.4 %; Platelet Count 118 K/uL (130-400); RDW Coefficient of Variation 15.1 % (11.5-14.5); RDW Standard Deviation 51.1 fL (36.4-46.3); Red Blood Count 3.98 M/uL (4.2-5.4); White Blood Count 15.14 K/uL (4.8-10.8)
[2019-12-18 21:56] LABS: Mean Corpuscular Hgb Conc 32.7 g/dL (32-36)
[2019-12-18 22:13] LABS: Albumin Level 1.9 gm/dl (3.4-5.0); BUN Creatinine Ratio 8.2 (10-20); Calcium 8.5 mg/dl (8.5-10.1); Est GFR (Non-African American) 88.9; Potassium 3.8 mmol/L (3.5-5.1)
[2019-12-18 22:16] LABS: Albumin Globulin Ratio 0.5 (0.9-2); Bilirubin,Total 0.5 mg/dl (0.2-1); Globulin 3.7 gm/dl (2.5-4.0); Total Protein 5.6 gm/dl (6.4-8.2)
[2019-12-18] MEDS ORDERED: POTASSIUM CHLORIDE 20 MEQ TABCR PO STA (22:25)
[2019-12-18 23:12] LABS: Partial Thromboplastin Ratio 1.1
[2019-12-18 23:25] LABS: Magnesium 1.5 mg/dl (1.8-2.4); Thyroid Stimulating Hormone 3.34 uIu/ml (0.300-4.500)
--- NOTE | 2019-12-18 23:29 | Hospitalist Consultation ---
Date of Consultation December 18, 2019 Assessment & Plan (1) state: Final Assessment and Recommendations as follows : tachycardia Multifactorial : Clinical dehydration given ketonuria, increase in baseline creatinine Electrolyte abnormalities Postop abdominal discomfort ? Oxytocin ( theoretical adverse effect of tachycardia) possibly contributory Asymptomatic pyuria History sickle cell trait IVF Replace electrolytes Analgesia Hold Oxytocin for now (Dr. Pelaez agreeable) Follow urine cultures, hold off on antibiotics for now Thank you very much for this consultation. Dr. Marks will follow patient's progress. Text document was generated using [employer] voice recognition software. It may contain grammatical or spelling errors. Kindly contact undersigned for clarification of any documentation item in question. History of Present Illness Reason for Consultation: Tachycardia Requesting Physician: Dr. Pelaez Attending Physician: Gualberto Pelaez MD History of Present Illness PCP : none History obtained from patient and records. Medical history significant for sickle cell trait. Patient underwent section this morning. Heart rate 100-1 40s peripartum. Patient denies chest pain, S OB, fever, chills, dysuria symptoms. Postop abdominal discomfort tolerable as per patient. As a young child, patient would notice episodic palpitations at home related to deep breathing. Last episode was at home about a few months ago. 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 Allergies Allergy/AdvReac Type Severity Reaction Status Date / Time No Known Drug Allergies Allergy Unknown Verified 11/25/19 20:34 Home Medications Home Medications Medication Instructions Recorded Confirmed Type magnesium oxide 400 mg PO HS #30 tab 09/21/19 12/17/19 Rx PNV cmb#95-ferrous fumarate-FA 1 tab PO DAILY 11/25/19 12/17/19 History [] valacyclovir [Valtrex] 500 mg PO DIRECTED 11/25/19 12/17/19 History Patient History Medical History Adopted Hx of herpes genitalis Numbness of face LEFT BOTTOM - PER PT HAS BEEN NUMB SINCE WISDOM TOOTH EXTRACTIION Seasonal allergies Surgical History Hx of wisdom tooth extraction S/P dilation and curettage Dr. Hassan. 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 [employer] Other Information That Helps Us Care for You: No Feels Safe at Home: Yes Safety Concerns: Feels Safe At This Time Review of Systems Review of Systems: As per HPI, all 10 systems reviewed, all other ROS negative Physical Exam Physical Exam: GENERAL: Comfortable, pleasant, obese, no respiratory distress SKIN: Normal color, warm HEENT: Bespectacled, pink palpebral conjunctivae, no ptosis, dry buccal mucosa NECK : Supple, short neck, no tenderness CHEST : CTA, no tenderness HEART : Tachycardic, no obvious murmurs ABDOMEN: Some distention, abdominal dressing in place EXTREMITIES : Minimal LE swelling, no LE tenderness, no other conspicuous de formities noted NEUROLOGIC : Coherent, no facial asymmetry, no other gross focality Results & Data Results & Data ([facility]) Vital Signs (Past 12 Hours) Vital Signs Temp Pulse Pulse Resp BP BP Pulse Ox 12/18/19 20:45 18 98 12/18/19 19:45 37.1 C 141 H 18 114/76 99 12/18/19 18:15 18 96 12/18/19 17:15 18 98 12/18/19 16:15 18 98 12/18/19 15:15 37.4 C 138 H 18 122/83 96 12/18/19 14:15 37.8 C H 145 H 18 132/68 98 12/18/19 13:19 125 H 131/61 12/18/19 13:15 38.1 C H 131 H 137 H 18 178/69 H 178/69 H 95 12/18/19 13:10 128 H 94 12/18/19 13:05 126 H 131/60 94 12/18/19 13:00 127 H 95 12/18/19 12:55 38.1 C H 123 H 18 129/58 L 95 07/29/20 12:50 124 H 95 12/18/19 12:45 128 H 139/66 97 12/18/19 12:40 123 H 96 12/18/19 12:35 122 H 137/68 95 12/18/19 12:30 116 H 98 12/18/19 12:25 111 H 141/74 H 99 12/18/19 12:20 113 H 98 12/18/19 12:15 106 H 142/73 H 100 12/18/19 12:10 121 H 97 12/18/19 12:05 115 H 144/78 H 97 12/18/19 12:00 118 H 98 12/18/19 11:55 127 H 20 143/82 H 95 12/18/19 11:50 113 H 98 12/18/19 11:45 127 H 20 102/70 97 12/18/19 11:44 116 H 86 L 12/18/19 11:39 109 H 100 12/18/19 11:35 125 H 16 131/57 L 12/18/19 11:34 119 H 91 Laboratory Results Laboratory Results WBC 15.14 K/uL (4.8-10.8) H 12/18/19 21:46 RBC 3.98 M/uL (4.2-5.4) L 12/18/19 21:46 Hgb 12.0 g/dL (12.0-16.0) 12/18/19 21:46 Hct 36.7 % (37-47) L 12/18/19 21:46 MCV 92.2 fL (80-100) 12/18/19 21:46 MCH 30.2 pg (25-34) 12/18/19 21:46 MCHC 32.7 g/dL (32-36) 12/18/19 21:46 RDW Std Deviation 51.1 fL (36.4-46.3) H 12/18/19 21:46 RDW Coeff of Juan Manuel 15.1 % (11.5-14.5) H 12/18/19 21:46 Plt Count 118 K/uL (130-400) L 12/18/19 21:46 MPV 11.9 fL (7.4-10.4) H 12/18/19 21:46 Immature Gran % (Auto) 0.7 % 12/18/19 21:46 Neut % (Auto) 79.4 % 12/18/19 21:46 Lymph % (Auto) 12.2 % 12/18/19 21:46 [place] % (Auto) 7.5 % 12/18/19 21:46 Eos % (Auto) 0.1 % 12/18/19 21:46 Baso % (Auto) 0.1 % 12/18/19 21:46 Neut # (Auto) 12.02 K/uL (1.4-6.5) H 12/18/19 21:46 Lymph # (Auto) 1.85 K/uL (1.2-3.4) 12/18/19 21:46 [place] # (Auto) 1.13 K/uL (0.11-0.59) H 12/18/19 21:46 Eos # (Auto) 0.01 K/uL (0-0.5) 12/18/19 21:46 Baso # (Auto) 0.02 K/uL (0-0.2) 12/18/19 21:46 Immature Gran # (Auto) 0.11 K/uL (0.00-0.02) H 12/18/19 21:46 Platelet Estimate Normal (Normal) 12/17/19 18:13 APTT 31.0 Seconds (21.0-31.0) 12/18/19 22:47 PTT Ratio 1.1 12/18/19 22:47 Sodium 138 mmol/L (136-145) 12/18/19 21:43 Potassium 3.8 mmol/L (3.5-5.1) 12/18/19 21:43 Chloride 110 mmol/L (98-107) H 12/18/19 21:43 Carbon Dioxide 22 mmol/L (21-32) 12/18/19 21:43 Anion Gap 6.0 (3-11) 12/18/19 21:43 BUN 7 mg/dl (7-18) 12/18/19 21:43 Creatinine 0.90 mg/dl (0.6-1.2) 12/18/19 21:43 Est Cr Clr Drug Dosing 101.0 ml/min 12/18/19 21:43 Est GFR ( Amer) 103.0 12/18/19 21:43 Est GFR (Non-Af Amer) 88.9 12/18/19 21:43 BUN/Creatinine Ratio 8.2 (10-20) L 12/18/19 21:43 Glucose 76 mg/dl (70-99) 12/18/19 21:43 Lactate 0.8 mmol/L (0.4-2.0) 12/18/19 22:47 Calcium 8.5 mg/dl (8.5-10.1) 12/18/19 21:43 Magnesium 1.5 mg/dl (1.8-2.4) L 12/18/19 22:47 Total Bilirubin 0.5 mg/dl (0.2-1) 12/18/19 21:43 AST 32 U/L (15-37) 12/18/19 21:43 ALT 16 U/L (12-78) 12/18/19 21:43 Alkaline Phosphatase 208 U/L (45-117) H 12/18/19 21:43 Total Protein 5.6 gm/dl (6.4-8.2) L 12/18/19 21:43 Albumin 1.9 gm/dl (3.4-5.0) L 12/18/19 21:43 Globulin 3.7 gm/dl (2.5-4.0) 12/18/19 21:43 Albumin/Globulin Ratio 0.5 (0.9-2) L 12/18/19 21:43 TSH 3.340 uIu/ml (0.300-4.500) 12/18/19 22:47 COVID-19 PCR NEGATIVE (Negative) 12/18/19 06:54 Laboratory Results WBC 15.14 K/uL (4.8-10.8) H 12/18/19 21:46 RBC 3.98 M/uL (4.2-5.4) L 12/18/19 21:46 Hgb 12.0 g/dL (12.0-16.0) 12/18/19 21:46 Hct 36.7 % (37-47) L 12/18/19 21:46 MCV 92.2 fL (80-100) 12/18/19 21:46 MCH 30.2 pg (25-34) 12/18/19 21:46 MCHC 32.7 g/dL (32-36) 12/18/19 21:46 RDW Std Deviation 51.1 fL (36.4-46.3) H 12/18/19 21:46 RDW Coeff of Juan Manuel 15.1 % (11.5-14.5) H 12/18/19 21:46 Plt Count 118 K/uL (130-400) L 12/18/19 21:46 MPV 11.9 fL (7.4-10.4) H 12/18/19 21:46 Immature Gran % (Auto) 0.7 % 12/18/19 21:46 Neut % (Auto) 79.4 % 12/18/19 21:46 Lymph % (Auto) 12.2 % 12/18/19 21:46 [place] % (Auto) 7.5 % 12/18/19 21:46 Eos % (Auto) 0.1 % 12/18/19 21:46 Baso % (Auto) 0.1 % 12/18/19 21:46 Neut # (Auto) 12.02 K/uL (1.4-6.5) H 12/18/19 21:46 Lymph # (Auto) 1.85 K/uL (1.2-3.4) 12/18/19 21:46 [place] # (Auto) 1.13 K/uL (0.11-0.59) H 12/18/19 21:46 Eos # (Auto) 0.01 K/uL (0-0.5) 12/18/19 21:46 Baso # (Auto) 0.02 K/uL (0-0.2) 12/18/19 21:46 Immature Gran # (Auto) 0.11 K/uL (0.00-0.02) H 12/18/19 21:46 Platelet Estimate Normal (Normal) 12/17/19 18:13 APTT 31.0 Seconds (21.0-31.0) 12/18/19 22:47 PTT Ratio 1.1 12/18/19 22:47 Sodium 138 mmol/L (136-145) 12/18/19 21:43 Potassium 3.8 mmol/L (3.5-5.1) 12/18/19 21:43 Chloride 110 mmol/L (98-107) H 12/18/19 21:43 Carbon Dioxide 22 mmol/L (21-32) 12/18/19 21:43 Anion Gap 6.0 (3-11) 12/18/19 21:43 BUN 7 mg/dl (7-18) 12/18/19 21:43 Creatinine 0.90 mg/dl (0.6-1.2) 12/18/19 21:43 Est Cr Clr Drug Dosing 101.0 ml/min 12/18/19 21:43 Est GFR ( Amer) 103.0 12/18/19 21:43 Est GFR (Non-Af Amer) 88.9 12/18/19 21:43 BUN/Creatinine Ratio 8.2 (10-20) L 12/18/19 21:43 Glucose 76 mg/dl (70-99) 12/18/19 21:43 Lactate 0.8 mmol/L (0.4-2.0) 12/18/19 22:47 Calcium 8.5 mg/dl (8.5-10.1) 12/18/19 21:43 Magnesium 1.5 mg/dl (1.8-2.4) L 12/18/19 22:47 Total Bilirubin 0.5 mg/dl (0.2-1) 12/18/19 21:43 AST 32 U/L (15-37) 12/18/19 21:43 ALT 16 U/L (12-78) 12/18/19 21:43 Alkaline Phosphatase 208 U/L (45-117) H 12/18/19 21:43 Total Protein 5.6 gm/dl (6.4-8.2) L 12/18/19 21:43 Albumin 1.9 gm/dl (3.4-5.0) L 12/18/19 21:43 Globulin 3.7 gm/dl (2.5-4.0) 12/18/19 21:43 Albumin/Globulin Ratio 0.5 (0.9-2) L 12/18/19 21:43 Procalcitonin 0.13 ng/ml (0-0.5) 12/18/19 22:47 TSH 3.340 uIu/ml (0.300-4.500) 12/18/19 22:47 Urine Color Dark Yellow 12/18/19 23:35 Urine Appearance Clear (Clear) 12/18/19 23:35 Urine pH 5.0 (4.5-7.5) 12/18/19 23:35 Ur Specific [place] 1.017 (1.000-1.030) 12/18/19 23:35 Urine Protein Trace (Negative) H 12/18/19 23:35 Urine Glucose (UA) Negative (Negative) 12/18/19 23:35 Urine Ketones Trace (Negative) H 12/18/19 23:35 Urine Blood 3+ (Negative) H 12/18/19 23:35 Urine Nitrite Negative (Negative) 12/18/19 23:35 Urine Bilirubin Negative (Negative) 12/18/19 23:35 Urine Urobilinogen Negative (Negative) 12/18/19 23:35 Ur Leukocyte Esterase 2+ (Negative) H 12/18/19 23:35 Urine WBC (Auto) >30 /hpf (0-5) H 12/18/19 23:35 Urine RBC (Auto) >30 /hpf (0-4) H 12/18/19 23:35 U Hyaline Cast (Auto) 0 /lpf (0-5) 12/18/19 23:35 U Epithel Cells (Auto) >30 /lpf (0-5) H 12/18/19 23:35 Urine Bacteria (Auto) Negative (Negative) 12/18/19 23:35 Ur Renal Epithelial Cell Not Reportable 12/18/19 23:35 Urine Opiates Screen Pos (Neg) H 12/18/19 23:35 Ur Methadone, Qual Neg (Neg) 12/18/19 23:35 Urine Barbiturates Neg (Neg) 12/18/19 23:35 Ur Phencyclidine (PCP) Neg (Neg) 12/18/19 23:35 U Amphetamin/Meth Scrn Neg (Neg) 12/18/19 23:35 MDMA (Ecstasy) Screen Neg (Neg) 12/18/19 23:35 U Benzodiazepines Scrn Neg (Neg) 12/18/19 23:35 Ur Cocaine Metabolite Neg (Neg) 12/18/19 23:35 U Marijuana (THC) Screen Neg (Neg) 12/18/19 23:35 COVID-19 PCR NEGATIVE (Negative) 12/18/19 06:54 Diagnostic Findings Chest x-ray as per my interpretation: Atelectasis, elevated right hemidiaphragm EKG as per my interpretation : Rate 110, sinus tachycardia, normal axis, no ischemia
[2019-12-18] MEDS ORDERED: NSS + 20MEQ KCL 20 MEQ/1,000 ML BAG IV ONE (23:30)
[2019-12-18 23:58] LABS: Appearance Urine Clear (Clear); Bacteria Urine Automated Negative (Negative); Blood Urine 3+ (Negative); Color Urine Dark Yellow; Epithelial Cell Urine Auto >30 /lpf (0-5); Glucose Urine UA Negative (Negative); Ketones Urine Trace (Negative); Leukocyte Esterase Urine 2+ (Negative); Nitrite Urine Negative (Negative); Protein Urine Trace (Negative); RBC Urine Automated >30 /hpf (0-4); Specific Gravity Urine 1.017 (1.000-1.030); Urobilinogen Urine Negative (Negative); WBC Urine Automated >30 /hpf (0-5)
[2019-12-19] MEDS: MAGNESIUM SULFATE / D5W 1 GM/100 ML BAG IV SCH ×3 (00:05→04:15)
[2019-12-19 00:16] LABS: Bilirubin Urine Negative (Negative); Ictotest Urine Negative (Negative)
[2019-12-19 00:18] LABS: Cast Urine Automated 0 /lpf (0-5)
[2019-12-19 00:32] LABS: Amphetamines+Metham, Urine Neg (Neg); Barbiturates, Urine Neg (Neg); Benzodiazepine, Urine Neg (Neg); Cocaine, Urine Neg (Neg); MDMA (Ecstacy), Urine Neg (Neg); Methadone, Urine Neg (Neg); Opiate, Urine Pos (Neg); Phencyclidine, Urine Neg (Neg)
[2019-12-19] MEDS: KETOROLAC 30 MG/ML VIAL IV PRN (04:32)
[2019-12-19] MEDS ORDERED: DiphenhydrAMINE HCL 50 MG/ML VIAL IV PRN (04:59)
[2019-12-19] MEDS ORDERED: PROMETHAZINE HCL 25 MG in SODIUM CHLORIDE 0.9% 50 ML IV PRN (04:59)
[2019-12-19] MEDS ORDERED: DC INTRASPINAL MORPHINE ONE (04:59)
[2019-12-19] MEDS ORDERED: ONDANSETRON INJ 2 MG/ML 2 ML VIAL IV PRN (04:59)
[2019-12-19] MEDS ORDERED: NSS + 20MEQ KCL 20 MEQ/1,000 ML BAG IV ONE (05:00)
[2019-12-19 06:58] LABS: Basophils # (auto) 0.02 K/uL (0-0.2); Basophils % (auto) 0.1 %; Eosinophils # (auto) 0.02 K/uL (0-0.5); Eosinophils % (auto) 0.1 %; Hemoglobin 10.6 g/dL (12.0-16.0); Immature Granulocytes # (auto) 0.12 K/uL (0.00-0.02); Immature Granulocytes % (auto) 0.8 %; Lymphocytes # (auto) 1.92 K/uL (1.2-3.4); Mean Corpuscular Hemoglobin 30.4 pg (25-34); Mean Corpuscular Hgb Conc 33.1 g/dL (32-36); Mean Corpuscular Volume 91.7 fL (80-100); Monocytes # (auto) 1.01 K/uL (0.11-0.59); Monocytes % (auto) 6.8 %; Neutrophils # (auto) 11.69 K/uL (1.4-6.5); Neutrophils % (auto) 79.2 %; Platelet Count 117 K/uL (130-400); RDW Coefficient of Variation 15.1 % (11.5-14.5); RDW Standard Deviation 50.5 fL (36.4-46.3); Red Blood Count 3.49 M/uL (4.2-5.4); White Blood Count 14.78 K/uL (4.8-10.8)
[2019-12-19 07:12] LABS: Echinocytes 1+
[2019-12-19 07:17] LABS: BUN Creatinine Ratio 9.4 (10-20); Calcium 7.8 mg/dl (8.5-10.1); Creatinine Clr Calc Pharmacy 109.5 ml/min; Est GFR (African American) 113.6; Magnesium 2.4 mg/dl (1.8-2.4); Potassium 3.9 mmol/L (3.5-5.1)
--- NOTE | 2019-12-19 07:37 | XRay Report ---
XR chest 1V portable CLINICAL HISTORY: Tachycardia COMPARISON STUDY: No previous studies for comparison. FINDINGS: The cardiac and mediastinal contours are normal. There is no evidence of focal pulmonary co nsolidation. There is no evidence of failure. No pleural effusions are visualized.[ IMPRESSION: No active disease in the chest. ACT 112: Negative or not required by law. Electronically signed by: Mateo Ann M.D. 12/19/2019 7:35 AM
--- NOTE | 2019-12-19 08:56 | Electrocardiogram Report ---
Test Reason : Blood Pressure : / mmHG Vent. Rate : 111 BPM Atrial Rate : 111 BPM P-R Int : 162 ms QRS Dur : 070 ms QT Int : 314 ms P-R-T Axes : 053 065 021 degrees QTc Int : 427 ms Sinus tachycardia Otherwise normal ECG No previous ECGs available Confirmed by Jason Rubi ([id number]) on 12/19/2019 8:56:19 AM Referred By: Gualberto Pelaez Confirmed By:Jason Rubi
--- NOTE | 2019-12-19 09:23 | Obstetrical Progress Note ---
Date of Service December 19, 2019 Assessment & Plan Admission and Anticipated Discharge Date Admission Date: December 17, 2019 Subjective Patient is seen and examined. She feels well, no complaints. Pain is under control with oral meds. Ambulating without dizziness Voiding without difficulty Tolerating regular diet with out N&V On IV electrolytes Flatus + BM NEG Bleeding is minimal No fever/ chills/ CP/ SOB/ N&V/ Leg pain Breast feeding without problems Vital Signs Temp Pulse Resp BP Pulse Ox 12/19/19 07:44 36.8 C 105 H 20 116/76 97 12/19/19 05:00 12 97 12/19/19 04:00 18 98 12/19/19 03:30 36.9 C 110 H 18 116/76 98 12/19/19 02:30 18 98 12/19/19 01:14 18 97 12/19/19 00:30 18 98 12/18/19 23:40 37.0 C 112 H 18 121/69 97 12/18/19 22:45 18 97 12/18/19 21:45 18 98 12/19/19 12/19/19 12/18/19 Range/Units 06:22 06:22 23:35 WBC 14.78 H (4.8-10.8) K/uL RBC 3.49 L (4.2-5.4) M/uL Hgb 10.6 L (12.0-16.0) g/dL Hct 32.0 L (37-47) % MCV 91.7 (80-100) fL MCH 30.4 (25-34) pg MCHC 33.1 (32-36) g/dL RDW Std Deviation 50.5 H (36.4-46.3) fL RDW Coeff of Juan Manuel 15.1 H (11.5-14.5) % Plt Count 117 L (130-400) K/uL MPV 12.0 H (7.4-10.4) fL Immature Gran % (Auto) 0.8 % Neut % (Auto) 79.2 % Lymph % (Auto) 13.0 % [place] % (Auto) 6.8 % Eos % (Auto) 0.1 % Baso % (Auto) 0.1 % Neut # (Auto) 11.69 H (1.4-6.5) K/uL Lymph # (Auto) 1.92 (1.2-3.4) K/uL [place] # (Auto) 1.01 H (0.11-0.59) K/uL Eos # (Auto) 0.02 (0-0.5) K/uL Baso # (Auto) 0.02 (0-0.2) K/uL Immature Gran # (Auto) 0.12 H (0.00-0.02) K/uL Echinocytes 1+ APTT (21.0-31.0) Seconds PTT Ratio Sodium 141 (136-145) mmol/L Potassium 3.9 (3.5-5.1) mmol/L Chloride 113 H (98-107) mmol/L Carbon Dioxide 21 (21-32) mmol/L Anion Gap 7.0 (3-11) BUN 8 (7-18) mg/dl Creatinine 0.83 (0.6-1.2) mg/dl Est Cr Clr Drug Dosing 109.5 ml/min Est GFR ( Amer) 113.6 Est GFR (Non-Af Amer) 98.0 BUN/Creatinine Ratio 9.4 L (10-20) Glucose 86 (70-99) mg/dl Lactate (0.4-2.0) mmol/L Calcium 7.8 L (8.5-10.1) mg/dl Magnesium 2.4 (1.8-2.4) mg/dl Total Bilirubin (0.2-1) mg/dl AST (15-37) U/L ALT (12-78) U/L Alkaline Phosphatase (45-117) U/L Total Protein (6.4-8.2) gm/dl Albumin (3.4-5.0) gm/dl Globulin (2.5-4.0) gm/dl Albumin/Globulin Ratio (0.9-2) Procalcitonin (0-0.5) ng/ml TSH (0.300-4.500) uIu/ml Urine Color Urine Appearance (Clear) Urine pH (4.5-7.5) Ur Specific [place] (1.000-1.030) Urine Protein (Negative) Urine Glucose (UA) (Negative) Urine Ketones (Negative) Urine Blood (Negative) Urine Nitrite (Negative) Urine Bilirubin (Negative) Urine Urobilinogen (Negative) Ur Leukocyte Esterase (Negative) Urine WBC (Auto) (0-5) /hpf Urine RBC (Auto) (0-4) /hpf U Hyaline Cast (Auto) (0-5) /lpf U Epithel Cells (Auto) (0-5) /lpf Urine Bacteria (Auto) (Negative) Ur Renal Epithelial Cell Urine Opiates Screen (Neg) U Codeine Confrm GC/MS Pending Ur Morphine (GC/MS) Pending Ur Hydrocodone (GC/MS) Pending Ur Norhydrocodone Pending Ur Noroxycodone Pending Urine Oxycodone (GC/MS) Pending U Oxymorphone GC/MS Pending Ur Methadone, Qual (Neg) Ur Hydromorphone (GC/MS) Pending Urine Barbiturates (Neg) Ur Phencyclidine (PCP) (Neg) U Amphetamin/Meth Scrn (Neg) MDMA (Ecstasy) Screen (Neg) U Benzodiazepines Scrn (Neg) Ur Cocaine Metabolite (Neg) U Marijuana (THC) Screen (Neg) Drug Screen Comment Pending 12/18/19 12/18/19 12/18/19 Range/Units 23:35 23:35 22:47 WBC (4.8-10.8) K/uL RBC (4.2-5.4) M/uL Hgb (12.0-16.0) g/dL Hct (37-47) % MCV (80-100) fL MCH (25-34) pg MCHC (32-36) g/dL RDW Std Deviation (36.4-46.3) fL RDW Coeff of Juan Manuel (11.5-14.5) % Plt Count (130-400) K/uL MPV (7.4-10.4) fL Immature Gran % (Auto) % Neut % (Auto) % Lymph % (Auto) % [place] % (Auto) % Eos % (Auto) % Baso % (Auto) % Neut # (Auto) (1.4-6.5) K/uL Lymph # (Auto) (1.2-3.4) K/uL [place] # (Auto) (0.11-0.59) K/uL Eos # (Auto) (0-0.5) K/uL Baso # (Auto) (0-0.2) K/uL Immature Gran # (Auto) (0.00-0.02) K/uL Echinocytes APTT 31.0 (21.0-31.0) Seconds PTT Ratio 1.1 Sodium (136-145) mmol/L Potassium (3.5-5.1) mmol/L Chloride (98-107) mmol/L Carbon Dioxide (21-32) mmol/L Anion Gap (3-11) BUN (7-18) mg/dl Creatinine (0.6-1.2) mg/dl Est Cr Clr Drug Dosing ml/min Est GFR ( Amer) Est GFR (Non-Af Amer) BUN/Creatinine Ratio (10-20) Glucose (70-99) mg/dl Lactate (0.4-2.0) mmol/L Calcium (8.5-10.1) mg/dl Magnesium (1.8-2.4) mg/dl Total Bilirubin (0.2-1) mg/dl AST (15-37) U/L ALT (12-78) U/L Alkaline Phosphatase (45-117) U/L Total Protein (6.4-8.2) gm/dl Albumin (3.4-5.0) gm/dl Globulin (2.5-4.0) gm/dl Albumin/Globulin Ratio (0.9-2) Procalcitonin (0-0.5) ng/ml TSH (0.300-4.500) uIu/ml Urine Color Dark Yellow Urine Appearance Clear (Clear) Urine pH 5.0 (4.5-7.5) Ur Specific [place] 1.017 (1.000-1.030) Urine Protein Trace H (Negative) Urine Glucose (UA) Negative (Negative) Urine Ketones Trace H (Negative) Urine Blood 3+ H (Negative) Urine Nitrite Negative (Negative) Urine Bilirubin Negative (Negative) Urine Urobilinogen Negative (Negative) Ur Leukocyte Esterase 2+ H (Negative) Urine WBC (Auto) >30 H (0-5) /hpf Urine RBC (Auto) >30 H (0-4) /hpf U Hyaline Cast (Auto) 0 (0-5) /lpf U Epithel Cells (Auto) >30 H (0-5) /lpf Urine Bacteria (Auto) Negative (Negative) Ur Renal Epithelial Cell Not Reportable Urine Opiates Screen Pos H (Neg) U Codeine Confrm GC/MS Ur Morphine (GC/MS) Ur Hydrocodone (GC/MS) Ur Norhydrocodone Ur Noroxycodone Urine Oxycodone (GC/MS) U Oxymorphone GC/MS Ur Methadone, Qual Neg (Neg) Ur Hydromorphone (GC/MS) Urine Barbiturates Neg (Neg) Ur Phencyclidine (PCP) Neg (Neg) U Amphetamin/Meth Scrn Neg (Neg) MDMA (Ecstasy) Screen Neg (Neg) U Benzodiazepines Scrn Neg (Neg) Ur Cocaine Metabolite Neg (Neg) U Marijuana (THC) Screen Neg (Neg) Drug Screen Comment 12/18/19 12/18/19 12/18/19 Range/Units 22:47 22:47 22:47 WBC (4.8-10.8) K/uL RBC (4.2-5.4) M/uL Hgb (12.0-16.0) g/dL Hct (37-47) % MCV (80-100) fL MCH (25-34) pg MCHC (32-36) g/dL RDW Std Deviation (36.4-46.3) fL RDW Coeff of Juan Manuel (11.5-14.5) % Plt Count (130-400) K/uL MPV (7.4-10.4) fL Immature Gran % (Auto) % Neut % (Auto) % Lymph % (Auto) % [place] % (Auto) % Eos % (Auto) % Baso % (Auto) % Neut # (Auto) (1.4-6.5) K/uL Lymph # (Auto) (1.2-3.4) K/uL [place] # (Auto) (0.11-0.59) K/uL Eos # (Auto) (0-0.5) K/uL Baso # (Auto) (0-0.2) K/uL Immature Gran # (Auto) (0.00-0.02) K/uL Echinocytes APTT (21.0-31.0) Seconds PTT Ratio Sodium (136-145) mmol/L Potassium (3.5-5.1) mmol/L Chloride (98-107) mmol/L Carbon Dioxide (21-32) mmol/L Anion Gap (3-11) BUN (7-18) mg/dl Creatinine (0.6-1.2) mg/dl Est Cr Clr Drug Dosing ml/min Est GFR ( Amer) Est GFR (Non-Af Amer) BUN/Creatinine Ratio (10-20) Glucose (70-99) mg/dl Lactate 0.8 (0.4-2.0) mmol/L Calcium (8.5-10.1) mg/dl Magnesium 1.5 L (1.8-2.4) mg/dl Total Bilirubin (0.2-1) mg/dl AST (15-37) U/L ALT (12-78) U/L Alkaline Phosphatase (45-117) U/L Total Protein (6.4-8.2) gm/dl Albumin (3.4-5.0) gm/dl Globulin (2.5-4.0) gm/dl Albumin/Globulin Ratio (0.9-2) Procalcitonin 0.13 (0-0.5) ng/ml TSH 3.340 (0.300-4.500) uIu/ml Urine Color Urine Appearance (Clear) Urine pH (4.5-7.5) Ur Specific [place] (1.000-1.030) Urine Protein (Negative) Urine Glucose (UA) (Negative) Urine Ketones (Negative) Urine Blood (Negative) Urine Nitrite (Negative) Urine Bilirubin (Negative) Urine Urobilinogen (Negative) Ur Leukocyte Esterase (Negative) Urine WBC (Auto) (0-5) /hpf Urine RBC (Auto) (0-4) /hpf U Hyaline Cast (Auto) (0-5) /lpf U Epithel Cells (Auto) (0-5) /lpf Urine Bacteria (Auto) (Negative) Ur Renal Epithelial Cell Urine Opiates Screen (Neg) U Codeine Confrm GC/MS Ur Morphine (GC/MS) Ur Hydrocodone (GC/MS) Ur Norhydrocodone Ur Noroxycodone Urine Oxycodone (GC/MS) U Oxymorphone GC/MS Ur Methadone, Qual (Neg) Ur Hydromorphone (GC/MS) Urine Barbiturates (Neg) Ur Phencyclidine (PCP) (Neg) U Amphetamin/Meth Scrn (Neg) MDMA (Ecstasy) Screen (Neg) U Benzodiazepines Scrn (Neg) Ur Cocaine Metabolite (Neg) U Marijuana (THC) Screen (Neg) Drug Screen Comment 07/29/20 07/29/20 Range/Units 21:46 21:43 WBC 15.14 H (4.8-10.8) K/uL RBC 3.98 L (4.2-5.4) M/uL Hgb 12.0 (12.0-16.0) g/dL Hct 36.7 L (37-47) % MCV 92.2 (80-100) fL MCH 30.2 (25-34) pg MCHC 32.7 (32-36) g/dL RDW Std Deviation 51.1 H (36.4-46.3) fL RDW Coeff of Juan Manuel 15.1 H (11.5-14.5) % Plt Count 118 L (130-400) K/uL MPV 11.9 H (7.4-10.4) fL Immature Gran % (Auto) 0.7 % Neut % (Auto) 79.4 % Lymph % (Auto) 12.2 % [place] % (Auto) 7.5 % Eos % (Auto) 0.1 % Baso % (Auto) 0.1 % Neut # (Auto) 12.02 H (1.4-6.5) K/uL Lymph # (Auto) 1.85 (1.2-3.4) K/uL [place] # (Auto) 1.13 H (0.11-0.59) K/uL Eos # (Auto) 0.01 (0-0.5) K/uL Baso # (Auto) 0.02 (0-0.2) K/uL Immature Gran # (Auto) 0.11 H (0.00-0.02) K/uL Echinocytes APTT (21.0-31.0) Seconds PTT Ratio Sodium 138 (136-145) mmol/L Potassium 3.8 (3.5-5.1) mmol/L Chloride 110 H (98-107) mmol/L Carbon Dioxide 22 (21-32) mmol/L Anion Gap 6.0 (3-11) BUN 7 (7-18) mg/dl Creatinine 0.90 (0.6-1.2) mg/dl Est Cr Clr Drug Dosing 101.0 ml/min Est GFR ( Amer) 103.0 Est GFR (Non-Af Amer) 88.9 BUN/Creatinine Ratio 8.2 L (10-20) Glucose 76 (70-99) mg/dl Lactate (0.4-2.0) mmol/L Calcium 8.5 (8.5-10.1) mg/dl Magnesium (1.8-2.4) mg/dl Total Bilirubin 0.5 (0.2-1) mg/dl AST 32 (15-37) U/L ALT 16 (12-78) U/L Alkaline Phosphatase 208 H (45-117) U/L Total Protein 5.6 L (6.4-8.2) gm/dl Albumin 1.9 L (3.4-5.0) gm/dl Globulin 3.7 (2.5-4.0) gm/dl Albumin/Globulin Ratio 0.5 L (0.9-2) Procalcitonin (0-0.5) ng/ml TSH (0.300-4.500) uIu/ml Urine Color Urine Appearance (Clear) Urine pH (4.5-7.5) Ur Specific [place] (1.000-1.030) Urine Protein (Negative) Urine Glucose (UA) (Negative) Urine Ketones (Negative) Urine Blood (Negative) Urine Nitrite (Negative) Urine Bilirubin (Negative) Urine Urobilinogen (Negative) Ur Leukocyte Esterase (Negative) Urine WBC (Auto) (0-5) /hpf Urine RBC (Auto) (0-4) /hpf U Hyaline Cast (Auto) (0-5) /lpf U Epithel Cells (Auto) (0-5) /lpf Urine Bacteria (Auto) (Negative) Ur Renal Epithelial Cell Urine Opiates Screen (Neg) U Codeine Confrm GC/MS Ur Morphine (GC/MS) Ur Hydrocodone (GC/MS) Ur Norhydrocodone Ur Noroxycodone Urine Oxycodone (GC/MS) U Oxymorphone GC/MS Ur Methadone, Qual (Neg) Ur Hydromorphone (GC/MS) Urine Barbiturates (Neg) Ur Phencyclidine (PCP) (Neg) U Amphetamin/Meth Scrn (Neg) MDMA (Ecstasy) Screen (Neg) U Benzodiazepines Scrn (Neg) Ur Cocaine Metabolite (Neg) U Marijuana (THC) Screen (Neg) Drug Screen Comment PE: General: Alert, orientedx3, NAD CVS: S1S2 RRR Lungs; CTAB Abd: soft, appropriately tender, ND, BS+, fundus firm, below Umbilicus Incision/ dressing: Clean, dry, intact Perineum intact, Lochia rubra minimal Ext; NT, 2+/2+ edema, Юлия's sign negative BL AP: 24 yo s/p C Section, pod# 1 VSS Afebrile doing well Continue routine postop care Encourage ambulation, PO intake All questions were answered Results & Data ([facility]) Vital Signs (Past 12 Hours) Vital Signs Temp Pulse Resp BP Pulse Ox 12/19/19 07:44 36.8 C 105 H 20 116/76 97 12/19/19 05:00 12 97 12/19/19 04:00 18 98 12/19/19 03:30 36.9 C 110 H 18 116/76 98 12/19/19 02:30 18 98 12/19/19 01:14 18 97 12/19/19 00:30 18 98 12/18/19 23:40 37.0 C 112 H 18 121/69 97 12/18/19 22:45 18 97 12/18/19 21:45 18 98
[2019-12-19] MEDS: FERROUS SULFATE 325 MG TAB PO SCH (09:35)
[2019-12-19] MEDS: PRENATAL VITAMIN 1 TAB PO SCH (09:35)
[2019-12-19] MEDS: DOCUSATE SODIUM 100 MG CAP PO SCH ×2 (09:35→21:48)
[2019-12-19] MEDS: OXYCODONE/ACETAMINOPHEN 5mg/325mg TAB PO PRN ×3 (09:36→17:56)
[2019-12-19] MEDS: SIMETHICONE 80 MG CHEW PO SCH ×4 (09:36→21:48)
[2019-12-19] MEDS: IBUPROFEN 600 MG TAB PO PRN ×3 (09:37→17:57)
[2019-12-19] MEDS ORDERED: bisacodyL 5 MG TABEC PO SCH (20:00)
--- NOTE | 2019-12-19 20:08 | Hospitalist Progress Note ---
Date of Service December 19, 2019 Assessment & Plan (1) state: s/p C Section, pod# 2 managed by OB-WASTE/MATERIALS EXCHANGE SPECIALIST Hgb dropped to 10.7 Tachycardia Possible related to pain from the surgery, electrolytes abnormality and oxytocin medication EKG showed sinus tachycardia Denies any symptoms Discussed with patient if palpitation continues, consider to get an ECHO Follow up with PCP outpatient Electrolytes Imbalance Mg was 1.5, then replaced Mg today 2.4 Stable Abnormal UA Positive for WBC, Leukocytes and blood Urine cx pending Blood cx no growth Afebrile, procalcitonin negative Continue to hold on abx Anemia acute blood loss Related to post op and IVF dilution Hgb 10.6 today Continue monitor H/H CODE Status FULL CODE Disposition As or OB-WASTE/MATERIALS EXCHANGE SPECIALIST Admission and Anticipated Discharge Date Admission Date: December 17, 2019 Subjective Pt was seen and examined Lying in bed with no distress with her new born baby at bedside Pt said that she feels fine much better She said that she does not have any palpitation today Denies any chest pain, palpitation and SOB Physical Exam Physical Exam: General- No acute distress Head- atraumatic Eyes- PERRL, EOMI, ENT- oropharynx clear Neck- supple, no JVD Lungs- clear to auscultation Heart- +tachycardia, no murmur Extremities- no calf tenderness Neuro- alert, oriented x 3; PERRL, EOMI; no facial palsy; no dysarthria Skin- warm & dry Results & Data Results & Data ([facility]) Vital Signs (Past 12 Hours) Vital Signs Temp Pulse Resp BP Pulse Ox 12/19/19 17:50 36.8 C 105 H 20 124/80 12/19/19 12:00 36.8 C 102 H 18 127/82 97
[2019-12-20] MEDS: IBUPROFEN 600 MG TAB PO PRN ×5 (00:02→20:56)
[2019-12-20] MEDS: OXYCODONE/ACETAMINOPHEN 5mg/325mg TAB PO PRN ×5 (00:03→20:57)
[2019-12-20 06:20] LABS: Hematocrit (blood only) 32.8 % (37-47); Hemoglobin 10.7 g/dL (12.0-16.0)
--- NOTE | 2019-12-20 07:58 | Surgery Progress Note ---
Date of Service December 20, 2019 Subjective POD#2 doing fine passing gas aries diet oob Physical Exam Constitutional: WD/WN, vitals as above comfortable incision c/d/i fundus firm no tenderness no edema neg Юлия's tent d/c in AM Results & Data Vital Signs (Past 12 Hours) Vital Signs Temp Pulse Resp BP Pulse Ox 12/19/19 23:50 36.6 C 106 H 18 139/77 98 12/19/19 20:25 36.7 C 105 H 18 126/81 98 Laboratory Results 12/17/19 12/18/19 12/18/19 18:13 06:54 21:43 WBC 10.90 H RBC 4.29 Hgb 13.0 Hct 39.6 MCV 92.3 MCH 30.3 MCHC 32.8 RDW Std Deviation 51.0 H RDW Coeff of Juan Manuel 15.2 H Plt Count 130 MPV 12.1 H Immature Gran % (Auto) Neut % (Auto) Lymph % (Auto) Blanco % (Auto) Eos % (Auto) Baso % (Auto) Neut # (Auto) Lymph # (Auto) Blanco # (Auto) Eos # (Auto) Baso # (Auto) Immature Gran # (Auto) Platelet Estimate Normal Echinocytes APTT PTT Ratio Sodium 138 Potassium 3.8 Chloride 110 H Carbon Dioxide 22 Anion Gap 6.0 BUN 7 Creatinine 0.90 Est Cr Clr Drug Dosing 101.0 Est GFR ( Amer) 103.0 Est GFR (Non-Af Amer) 88.9 BUN/Creatinine Ratio 8.2 L Glucose 76 Lactate Calcium 8.5 Magnesium Total Bilirubin 0.5 AST 32 ALT 16 Alkaline Phosphatase 208 H Total Protein 5.6 L Albumin 1.9 L Globulin 3.7 Albumin/Globulin Ratio 0.5 L Procalcitonin TSH Urine Color Urine Appearance Urine pH Ur Specific Cyclone Urine Protein Urine Glucose (UA) Urine Ketones Urine Blood Urine Nitrite Urine Bilirubin Urine Urobilinogen Ur Leukocyte Esterase Urine WBC (Auto) Urine RBC (Auto) U Hyaline Cast (Auto) U Epithel Cells (Auto) Urine Bacteria (Auto) Ur Renal Epithelial Cell Urine Opiates Screen Ur Methadone, Qual Urine Barbiturates Ur Phencyclidine (PCP) U Amphetamin/Meth Scrn MDMA (Ecstasy) Screen U Benzodiazepines Scrn Ur Cocaine Metabolite U Marijuana (THC) Screen COVID-19 PCR NEGATIVE 0712/18/19 12/18/19 21:46 22:47 22:47 WBC 15.14 H RBC 3.98 L Hgb 12.0 Hct 36.7 L MCV 92.2 MCH 30.2 MCHC 32.7 RDW Std Deviation 51.1 H RDW Coeff of Juan Manuel 15.1 H Plt Count 118 L MPV 11.9 H Immature Gran % (Auto) 0.7 Neut % (Auto) 79.4 Lymph % (Auto) 12.2 Blanco % (Auto) 7.5 Eos % (Auto) 0.1 Baso % (Auto) 0.1 Neut # (Auto) 12.02 H Lymph # (Auto) 1.85 Blanco # (Auto) 1.13 H Eos # (Auto) 0.01 Baso # (Auto) 0.02 Immature Gran # (Auto) 0.11 H Platelet Estimate Echinocytes APTT PTT Ratio Sodium Potassium Chloride Carbon Dioxide Anion Gap BUN Creatinine Est Cr Clr Drug Dosing Est GFR ( Amer) Est GFR (Non-Af Amer) BUN/Creatinine Ratio Glucose Lactate 0.8 Calcium Magnesium 1.5 L Total Bilirubin AST ALT Alkaline Phosphatase Total Protein Albumin Globulin Albumin/Globulin Ratio Procalcitonin TSH 3.340 Urine Color Urine Appearance Urine pH Ur Specific Cyclone Urine Protein Urine Glucose (UA) Urine Ketones Urine Blood Urine Nitrite Urine Bilirubin Urine Urobilinogen Ur Leukocyte Esterase Urine WBC (Auto) Urine RBC (Auto) U Hyaline Cast (Auto) U Epithel Cells (Auto) Urine Bacteria (Auto) Ur Renal Epithelial Cell Urine Opiates Screen Ur Methadone, Qual Urine Barbiturates Ur Phencyclidine (PCP) U Amphetamin/Meth Scrn MDMA (Ecstasy) Screen U Benzodiazepines Scrn Ur Cocaine Metabolite U Marijuana (THC) Screen COVID-19 PCR 12/18/19 12/18/19 12/18/19 22:47 22:47 23:35 WBC RBC Hgb Hct MCV MCH MCHC RDW Std Deviation RDW Coeff of Juan Manuel Plt Count MPV Immature Gran % (Auto) Neut % (Auto) Lymph % (Auto) Blanco % (Auto) Eos % (Auto) Baso % (Auto) Neut # (Auto) Lymph # (Auto) Blanco # (Auto) Eos # (Auto) Baso # (Auto) Immature Gran # (Auto) Platelet Estimate Echinocytes APTT 31.0 PTT Ratio 1.1 Sodium Potassium Chloride Carbon Dioxide Anion Gap BUN Creatinine Est Cr Clr Drug Dosing Est GFR ( Amer) Est GFR (Non-Af Amer) BUN/Creatinine Ratio Glucose Lactate Calcium Magnesium Total Bilirubin AST ALT Alkaline Phosphatase Total Protein Albumin Globulin Albumin/Globulin Ratio Procalcitonin 0.13 TSH Urine Color Urine Appearance Urine pH Ur Specific Cyclone Urine Protein Urine Glucose (UA) Urine Ketones Urine Blood Urine Nitrite Urine Bilirubin Urine Urobilinogen Ur Leukocyte Esterase Urine WBC (Auto) Urine RBC (Auto) U Hyaline Cast (Auto) U Epithel Cells (Auto) Urine Bacteria (Auto) Ur Renal Epithelial Cell Urine Opiates Screen Pos H Ur Methadone, Qual Neg Urine Barbiturates Neg Ur Phencyclidine (PCP) Neg U Amphetamin/Meth Scrn Neg MDMA (Ecstasy) Screen Neg U Benzodiazepines Scrn Neg Ur Cocaine Metabolite Neg U Marijuana (THC) Screen Neg COVID-19 PCR 12/18/19 12/19/19 12/19/19 23:35 06:22 06:22 WBC 14.78 H RBC 3.49 L Hgb 10.6 L Hct 32.0 L MCV 91.7 MCH 30.4 MCHC 33.1 RDW Std Deviation 50.5 H RDW Coeff of Juan Manuel 15.1 H Plt Count 117 L MPV 12.0 H Immature Gran % (Auto) 0.8 Neut % (Auto) 79.2 Lymph % (Auto) 13.0 Blanco % (Auto) 6.8 Eos % (Auto) 0.1 Baso % (Auto) 0.1 Neut # (Auto) 11.69 H Lymph # (Auto) 1.92 Blanco # (Auto) 1.01 H Eos # (Auto) 0.02 Baso # (Auto) 0.02 Immature Gran # (Auto) 0.12 H Platelet Estimate Echinocytes 1+ APTT PTT Ratio Sodium 141 Potassium 3.9 Chloride 113 H Carbon Dioxide 21 Anion Gap 7.0 BUN 8 Creatinine 0.83 Est Cr Clr Drug Dosing 109.5 Est GFR ( Amer) 113.6 Est GFR (Non-Af Amer) 98.0 BUN/Creatinine Ratio 9.4 L Glucose 86 Lactate Calcium 7.8 L Magnesium 2.4 Total Bilirubin AST ALT Alkaline Phosphatase Total Protein Albumin Globulin Albumin/Globulin Ratio Procalcitonin TSH Urine Color Dark Yellow Urine Appearance Clear Urine pH 5.0 Ur Specific Cyclone 1.017 Urine Protein Trace H Urine Glucose (UA) Negative Urine Ketones Trace H Urine Blood 3+ H Urine Nitrite Negative Urine Bilirubin Negative Urine Urobilinogen Negative Ur Leukocyte Esterase 2+ H Urine WBC (Auto) >30 H Urine RBC (Auto) >30 H U Hyaline Cast (Auto) 0 U Epithel Cells (Auto) >30 H Urine Bacteria (Auto) Negative Ur Renal Epithelial Cell Not Reportable Urine Opiates Screen Ur Methadone, Qual Urine Barbiturates Ur Phencyclidine (PCP) U Amphetamin/Meth Scrn MDMA (Ecstasy) Screen U Benzodiazepines Scrn Ur Cocaine Metabolite U Marijuana (THC) Screen COVID-19 PCR 12/20/19 06:09 WBC RBC Hgb 10.7 L Hct 32.8 L MCV MCH MCHC RDW Std Deviation RDW Coeff of Juan Manuel Plt Count MPV Immature Gran % (Auto) Neut % (Auto) Lymph % (Auto) Blanco % (Auto) Eos % (Auto) Baso % (Auto) Neut # (Auto) Lymph # (Auto) Blanco # (Auto) Eos # (Auto) Baso # (Auto) Immature Gran # (Auto) Platelet Estimate Echinocytes APTT PTT Ratio Sodium Potassium Chloride Carbon Dioxide Anion Gap BUN Creatinine Est Cr Clr Drug Dosing Est GFR ( Amer) Est GFR (Non-Af Amer) BUN/Creatinine Ratio Glucose Lactate Calcium Magnesium Total Bilirubin AST ALT Alkaline Phosphatase Total Protein Albumin Globulin Albumin/Globulin Ratio Procalcitonin TSH Urine Color Urine Appearance Urine pH Ur Specific Cyclone Urine Protein Urine Glucose (UA) Urine Ketones Urine Blood Urine Nitrite Urine Bilirubin Urine Urobilinogen Ur Leukocyte Esterase Urine WBC (Auto) Urine RBC (Auto) U Hyaline Cast (Auto) U Epithel Cells (Auto) Urine Bacteria (Auto) Ur Renal Epithelial Cell Urine Opiates Screen Ur Methadone, Qual Urine Barbiturates Ur Phencyclidine (PCP) U Amphetamin/Meth Scrn MDMA (Ecstasy) Screen U Benzodiazepines Scrn Ur Cocaine Metabolite U Marijuana (THC) Screen COVID-19 PCR
--- NOTE | 2019-12-20 09:21 | Hospitalist Progress Note ---
Date of Service December 20, 2019 Assessment & Plan (1) state: S/P C Section, pod# 2 managed by OB-CONTRACTOR FIELD HAULING Hgb dropped to 10.7 Tachycardia EKG showed sinus tachycardia Possible related to pain from the surgery, electrolytes abnormality and oxytocin medication This morning HR: 89 Denies any symptoms H/O intermittent palpitations. Discussed with patient if palpitations would continue, increase in frequency or length, consider to get an ECHO, outpatient security monitor Follow up with PCP outpatient Electrolytes Imbalance Mg was 1.5, then replaced and was 2.4 on 12/19/2019 Abnormal UA Positive for WBC, Leukocytes and blood Urine cx pending Blood cx no growth Afebrile, procalcitonin negative Continue to hold on abx Anemia acute blood loss Related to post op and IVF dilution Hgb stable at 10.7 today, from 10.6 yesterday CODE Status FULL CODE Pt was care coordinated with Dr Marks. See addendum Disposition As or OB-CONTRACTOR FIELD HAULING Admission and Anticipated Discharge Date Admission Date: December 17, 2019 Supervising Physician Co-Signing Physician Notes Pt was seen and examine. Agreed with Winnie HERRERA exam, assessment and plan. Pt said that she feels good. She said has not had any palpitation in the last 2 days. s/p day#2 . No post-op complication. Hgb 10.7 stable. Her HR has been stable. Clinically stable. MD Kendrick Subjective Pt seen and examined. Sitting up in bed, baby. Reports doing well today. Denies any palpitations. has had intermittent palpitations since childhood and they occur once every couple of months, at rest when lying in bed prior to sleep and last from few minutes to up to 30-60 minutes and resolve with focused breathing. did not have any palpitations throughout her and denies any palpitations over past 2 days. Palpitations are never associated with SOB, CP, dizziness, syncope, diaphoresis. Denies any other complaints today. Denies fever/chills, diaphoresis, N/V, HERNANDEZ, dizziness, syncope, vision changes, neck pain, CP, SOB, cough, paresthesias, weakness, extremity edema or pain, urinary symptoms. Review of Systems Review of Systems: All systems reviewed & are unremarkable except as noted in HPI & below Physical Exam Physical Exam: General: no distress, WDWN Head: normocephalic, atraumatic Eyes:conjunctiva non-injected, anicteric ENT: normal inspection external ears, nose, mucous membranes moist Neck: supple, trachea midline Lungs: clear, no respiratory distress, no wheezing/rhonchi/rales CV: RRR, no murmur Abd: normal BS, soft Ext: no cyanosis or erythema or significant warmth, no calf tenderness Neuro: A&O x 3, no focal deficits noted, normal affect Skin: warm, dry Results & Data Results & Data ([facility]) Vital Signs (Past 12 Hours) Vital Signs Temp Pulse Resp BP Pulse Ox 12/20/19 08:00 36.7 C 89 18 124/83 97 12/19/19 23:50 36.6 C 106 H 18 139/77 98 Laboratory Results Short CBC 12/20/19 Range/Units 06:09 Hgb 10.7 L (12.0-16.0) g/dL Hct 32.8 L (37-47) %
[2019-12-20] MEDS: PRENATAL VITAMIN 1 TAB PO SCH (09:28)
[2019-12-20] MEDS: FERROUS SULFATE 325 MG TAB PO SCH (09:29)
[2019-12-20] MEDS: SIMETHICONE 80 MG CHEW PO SCH ×3 (09:30→20:56)
[2019-12-20] MEDS: DOCUSATE SODIUM 100 MG CAP PO SCH ×2 (09:30→20:56)
[2019-12-20] MEDS ORDERED: bisacodyL 10 MG SUPP PR PRN (10:53)
[2019-12-21] MEDS: OXYCODONE/ACETAMINOPHEN 5mg/325mg TAB PO PRN ×3 (01:20→12:30)
[2019-12-21] MEDS: IBUPROFEN 600 MG TAB PO PRN ×3 (01:20→12:31)
[2019-12-21] MEDS: DOCUSATE SODIUM 100 MG CAP PO SCH (08:33)
[2019-12-21] MEDS: SIMETHICONE 80 MG CHEW PO SCH ×2 (08:33→12:30)
[2019-12-21] MEDS: PRENATAL VITAMIN 1 TAB PO SCH (08:33)
[2019-12-21] MEDS: FERROUS SULFATE 325 MG TAB PO SCH (08:33)
[2019-12-21 12:00] LABS: Codeine Urine NEGATIVE ng/mL (<50); Hydrocodone Urine NEGATIVE ng/mL (<50); Hydromor Urine NEGATIVE ng/mL (<50); Morphine Urine 1320 ng/mL (<50); Norhydrocodone Conf Ur NEGATIVE ng/mL (<50); Noroxycodone Urine NEGATIVE ng/mL (<50); Oxycodone Urine NEGATIVE ng/mL (<50); Oxymorph Urine NEGATIVE ng/mL (<50)
--- NOTE | 2019-12-21 12:12 | Obstetrical Progress Note ---
Date of Service December 21, 2019 Assessment & Plan (1) delivery delivered: PPD #3 Pt doing well D/c home with instructions Subjective Ambulation: ambulating normally Voiding: no voiding problems Passing Gas:: Yes Diet Tolerance:: clear liquids Lochia:: Small Feeding Type:: breast feeding Review of Systems All systems reviewed & are unremarkable except as noted in HPI & below Physical Exam Constitutional WD/WN, vitals as above well developed and well nourished Eyes PERRL, conjunctivae normal, anicteric sclerae ENMT external ear and nose normal, oropharynx normal Neck trachea midline, no thyromegaly Respiratory normal respiratory effort, lungs clear to auscultation Cardiovascular RRR, no murmur, no edema Chest (Breasts) normal inspection/palpation of breasts Gastrointestinal (Abdomen) normal bowel sounds, soft, nontender, no hepatosplenomegaly Musculoskeletal no cyanosis or clubbing, extremities motor strength 5/5 Skin no rashes, warm and dry + incision (Clean,dry and intact) Neurologic patellar DTR's 2+ bilat, sensation intact Psychiatric A+Ox3, euthymic affect Genitourinary normal external appearance Lymphatic no cervical or axillary lymphadenopathy Results & Data Vital Signs (Past 12 Hours) Vital Signs Temp Pulse Resp BP Pulse Ox 12/21/19 08:10 36.8 C 105 H 18 130/82 97
--- NOTE | 2019-12-22 11:30 | Discharge Summary (DS) ---
CHIEF COMPLAINT: 1. at term. 2. Term premature rupture of membranes. HISTORY OF PRESENT ILLNESS: This is a 24-year-old G2, P0, due date 12/17/2019, who presented to labor and delivery on 12/17/2019. She had experienced spontaneous rupture of membrane. This was confirmed in the hospital on admission. The patient on admission was 4 cm. She continued to contract and after several hours of contraction, there was no cervical change on 12/18/2019 at 10:00 a.m. Decision was made to perform a section. After adequate contractions, cervix had not changed during all this time. Reason for section was therefore failure to progress. The patient underwent section and did well. Details of surgery is in the surgical record. Delivered a live female. 's details is also in the pediatric record. Surgery otherwise was unremarkable. Met all milestones in recovery. On postop day 1 and 2, patient did well. She was able to ambulate, tolerate p.o. food and meds. Today, she has been discharged home in stable condition. She is able to tolerate food and medications. Has positive bowel sounds. Incision was clean, dry and intact. Postop, the patient had tachycardia. She was seen by Medicine and worked up for her tachycardia. Her heart rate improved after Pitocin was discontinued and received magnesium. The patient will follow up with Medicine if the tachycardia persisted and will undergo an outpatient echo, otherwise normal. PAST MEDICAL HISTORY: History of seasonal allergies and herpes. PAST SURGICAL HISTORY: The patient has had dental surgery in the past as well as a D and C. SOCIAL HISTORY: The patient denies tobacco, drug or alcohol use. FAMILY HISTORY: Noncontributory. ALLERGIES: The patient has no known drug allergies. PHYSICAL EXAMINATION: VITAL SIGNS: On 12/21/2019 showed blood pressure 130/80, pulse of 105, respiration of 18, temperature 36.8. LABORATORY DATA: On 12/20/2019, hemoglobin was 10.7, hematocrit was 32.8. CONDITION ON DISCHARGE: Stable. OPERATIONS: A section for failure to progress. DISCHARGE DIAGNOSES: 1. Postop section. 2. Tachycardia, not otherwise specified. PLAN ON DISCHARGE: The patient is discharged home with instructions regarding activity, diet, followup appointment and medications.
== END 2019-12-21 13:11 | disposition home or self-care (01) | DRG 787 ==
LOC: OPB 17:31 → 4S1 17:32 → 4S2 12-18 13:45

== ENCOUNTER 2021-09-15 05:44 | Inpatient (IN) ==
--- NOTE | 2021-09-10 10:22 | Anesthesiology Consultation ---
Date of Service September 10, 2021 Assessment & Plan (1) Encounter for pre-operative examination: COVID screening: Per assessment on 09/10: No known COVID-19 positive contacts or current COVID-19 related symptoms. Travel screen negative. Patient vaccinated. Surgeon arranging preop COVID testing. Awaiting results. Chart Review Chart Review: entry level assistant manager initiated History Surgery Operation Date: 09/15/21 07:30 Proposed Procedures p Repeat Section - Ludy Kline MD, PhD Height/Weight Height: 5 ft 1 in Weight: 87.09 kg Allergies Allergy/AdvReac Type Severity Reaction Status Date / Time No Known Drug Allergies Allergy Unknown Verified 09/10/21 09:47 Medications Home Medications Medication Instructions Recorded Confirmed Last Taken vit no.95-ferrous 1 tab PO QPM 11/25/19 09/10/21 Unknown fumarate 28 mg-folic acid 800 mcg tablet () valacyclovir 500 mg tablet 500 mg PO DIRECTED 11/25/19 09/10/21 12/17/19 08:00 (Valtrex) docusate sodium 100 mg capsule 100 mg PO DAILY@ #30 cap 12/21/19 09/10/21 Unknown acetaminophen 500 mg tablet 500 mg PO Q6H PRN 09/10/21 09/10/21 Unknown ondansetron HCl 8 mg tablet 8 mg PO Q12H PRN 09/10/21 09/10/21 Unknown Past Medical History Medical History (Updated 09/10/21 @ 10:22 by Valeria Walsh) Adopted Hx of herpes genitalis 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 Hassan. S/P MAB Social History Smoking Status: Never smoker Do You Dip or Chew Tobacco: No Hx Alcohol Use: Yes Alcohol type: beer, wine and hard liquor alcohol intake frequency: holidays/special occasions only Alcohol Intake Frequency Comment: NON Hx Substance Use: No substance use type: does not use
[2021-09-15] MEDS ORDERED: LACTATED RINGER'S 1,000 ML IV SCH ×2 (06:00→08:45)
[2021-09-15] MEDS ORDERED: CITRIC ACID/SODIUM CITRATE 15 ML UDC PO SCH (06:00)
[2021-09-15] MEDS ORDERED: ceFAZolin 2,000 MG in SYRINGE 0 ML IV SCH (06:00)
--- NOTE | 2021-09-15 06:57 | History & Physical Bridge Note ---
Date of Service September 15, 2021 History & Physical Bridge Note I have examined the patient, reviewed the History & Physical and in the interval since the performance of the History & Physical I have noted the following changes of clinical significance: no changes noted
[2021-09-15 07:18] LABS: Basophils # (auto) 0.02 K/uL (0-0.2); Basophils % (auto) 0.2 %; Eosinophils # (auto) 0.08 K/uL (0-0.5); Eosinophils % (auto) 0.7 %; Hematocrit (blood only) 35.3 % (37-47); Hemoglobin 11.5 g/dL (12.0-16.0); Immature Granulocytes # (auto) 0.28 K/uL (0.00-0.02); Immature Granulocytes % (auto) 2.5 %; Lymphocytes # (auto) 2.39 K/uL (1.2-3.4); Lymphocytes % (auto) 21.3 %; Mean Corpuscular Hgb Conc 32.6 g/dL (32-36); Mean Corpuscular Volume 92.2 fL (80-100); Mean Platelet Volume 11.8 fL (7.4-10.4); Monocytes % (auto) 5.3 %; Neutrophils # (auto) 7.87 K/uL (1.4-6.5); Platelet Count 148 K/uL (130-400); RDW Coefficient of Variation 14.3 % (11.5-14.5); RDW Standard Deviation 48.1 fL (36.4-46.3); Red Blood Count 3.83 M/uL (4.2-5.4); White Blood Count 11.24 K/uL (4.8-10.8)
[2021-09-15] MEDS ORDERED: MoRPHine SULFATE PF 1 MG/ML 10 ML AMP/VIAL ONE (07:41)
[2021-09-15] MEDS ORDERED: OXYTOCIN 10 UNITS/ML 10ML VIAL ONE ×2 (08:31)
[2021-09-15] MEDS ORDERED: ONDANSETRON INJ 2 MG/ML 2 ML VIAL ONE ×2 (08:31)
[2021-09-15] MEDS ORDERED: PHENYLEPHRINE 100MCG/ML 5ML SYR ONE ×2 (08:31)
[2021-09-15] MEDS ORDERED: MAGNESIUM HYDROXIDE SUSP 30 ML UDC PO PRN (08:34)
[2021-09-15] MEDS ORDERED: SENNA 8.6 MG TAB PO PRN (08:34)
[2021-09-15] MEDS ORDERED: diphenhydrAMINE Capsule 25 MG CAP PO PRN ×2 (08:34→12:46)
[2021-09-15] MEDS ORDERED: DIPHTHERIA/TETANUS/PERTUSSIS 0.5 ML SYR/VIAL IM ONE (08:34)
[2021-09-15] MEDS ORDERED: PROMETHAZINE HCL 25 MG in SODIUM CHLORIDE 0.9% 50 ML IV PRN (08:34)
[2021-09-15] MEDS ORDERED: HYDROCORTISONE ACETATE 25 MG SUPP PR PRN (08:34)
[2021-09-15] MEDS ORDERED: diphenhydrAMINE 50 MG/ML VIAL IV PRN ×3 (08:34→12:46)
[2021-09-15] MEDS ORDERED: BENZOCAINE 20% AER SPR 82.5 GM CAN EXT PRN (08:34)
[2021-09-15] MEDS ORDERED: ONDANSETRON INJ 2 MG/ML 2 ML VIAL IV PRN ×2 (08:34→12:46)
--- NOTE | 2021-09-15 08:41 | Operative Report ---
Post Operative Report Pre & Post Diagnosis Operation Date: 09/15/21 07:30 Pre-Op Diagnosis: 1. 26 year old at 39 5/7 days 2. Desires repeat elective delivery 3. Previous delivery x1 4. Rh negative 5. History of HSV 6. GBS negative 7. Sickle cell trait Post-Op Diagnosis: Same; delivery of a live female child at 0813 I identified the patient and participated in the time-out.: Yes Procedure Operation Date: 09/15/21 07:30 Actual Procedures Repeat lower transverse delivery via Pfannenstiel incision- Ludy Kline MD, PhD Surgeon Ludy Kline MD, PhD Physician Compensation Analyst Vaishali Pelaez MD Estimated Blood Loss 700 Findings Consistent with Post-Op Diagnosis A live born female delivered at 8:13 AM with Apgars 8/9. Intact placenta with three-vessel cord. Cord pH not obtained. Infant weight pending. Normal- appearing uterus, normal-appearing bilateral fallopian tubes and ovaries seen at time of surgery. Fluids 1000mls Specimens Placenta, hold Drains Capellan catheter Anesthesia Type Spinal Complications None Indications Elective repeat delivery Description of Procedure Procedure Summary: section was recommended. Risks, benefits and alternatives were discussed including but not limited to infection, bleeding that may require blo od products or hysterectomy for life saving measures, injury to surrounding organs including but not limited to bowel, bladder, ureters, tubes and ovaries and/or the baby. Should injury occur it could require longer/additional surgery to repair. Patient was also counselled about risk of DVT/PE, and injury to infant during delivery. The patient stated understanding and desired to proceed. All questions were answered posed by patient. Prior to being taken to the OR, 2 grams of cefazolin IV was administered. The patient was taken to the operating room where regional anesthesia was found to be adequate. She was then prepared and draped in the usual sterile fashion in the dorsal supine position with a leftward tilt displacing the uterus. Capellan was draining to gravity. SCDs were on bilateral lower extremities. A pfannenstiel skin incision was then made with the scalpel and carried through to the underlying layer of fascia. The fascia was incised in the midline and the incision extended laterally with the Godoy scissors. The superior aspect of the facial incision was then grasped with the Erick clamps, elevated and the underlying rectus muscles dissected off bluntly. Attention was then turned to the inferior aspect of this incision which in a similar fashion was grasped, elevated with the Erick clamps and the rectus muscle dissected off bluntly. The rectus muscles were in the midline. The peritoneum identified, grasped with the pick-ups and entered sharply with the Metzenbaum scissors. The peritoneal incision was then extended superiorly and inferiorly with good vi sualization of the bladder. The bladder blade was inserted and the vesicouterine peritoneum was identified, grasped with the pick-ups, and entered sharply with Metzenbaum scissors. This incision was then extended laterally and the bladder flap created digitally and the bladder blade was reinserted. The lower uterine segment was identified and incised in a transverse fashion with the scalpel. The uterine incision was then extended bluntly laterally. Artificial rupture of membranes demonstrated clear fluid. The bladder blade was removed. The fetus was in cephalic presentation. The infant's head delivered atraumatically. The anterior shoulders were delivered followed by the posterior shoulders then the remainder of the body. The infant's mouth and nose were bulb suctioned. The umbilical cord was clamped times two and cut after 1 minute delayed cord clamping The was handed off to the awaiting pediatric staff. A female infant was delivered weight pending with APGARS of 8 at 1 minute an 9 at 5 minutes. The was taken to the recovery room for transition. Cord blood gases were obtained. The placenta was removed with gentle traction. 30 units of oxytocin were added to IVF and allowed to run freely. The uterus was exteriorized and cleared of all clots and debris. The uterine incision was inspected and found to be without any extensions and was repaired with 0 Vicryl in a running, locked fashion. A second imbricating layer was performed. Upon inspection, the repaired hysterotomy was found to be hemostatic. The uterus was firm and returned to the abdomen. The gutters were cleared of all clots and debris. The fascia was reapproximated with 0 Vicryl in a running fashion. The subcutaneous layer was closed with 2-0 Vicryl in a running fashionthe skin was closed in a subcuticular fashion with 4-0 vicryl. Dermabond and pressure bandage was applied over incision. The patient tolerated the procedure well. Sponge, lap and needle counts were correct x4. The patient was taken to the recovery room in stable condition. Attestation: My Physician Compensation Analyst was necessary throughout the procedure(s) for tissue retraction. I understand that section 1842 (b)(7)(D) of the Social Security Act generally prohibits Medicare physician fee schedule payment for the services of [id number] in teaching hospitals when qualified residents are available to furnish such services. I certify that the services for which payment is claimed were medically necessary, and that no qualified resident was available to perform the services. I further understand that these services are subject to post-payment review by the Medicare carrier. I attest to the content of the Intraoperative Record and any orders documented therein. Any exceptions are noted below.
--- NOTE | 2021-09-15 08:43 | Discharge Summary ---
Date of Service September 15, 2021 Admission HPI Per Admitting Provider 1. 26 year old at 39 5/7 weeks 2. Desires repeat elective delivery 3. Previous delivery x1 4. Rh negative 5. History of HSV 6. GBS negative 7. Sickle cell trait Admission Exam (Per Admitting) Constitutional WD/WN, vitals as above well developed and well nourished Eyes PERRL, conjunctivae normal, anicteric sclerae ENMT external ear and nose normal, oropharynx normal Nose: no facial edema Mouth: no TMJ abnormality Mallampati Class: II Neck trachea midline, no thyromegaly normal visual inspection Respiratory normal respiratory effort, lungs clear to auscultation normal respiratory effort Auscultation: lungs clear to auscultation bilaterally Cardiovascular RRR, no murmur, no edema Rate/Rhythm: regular rate and regular rhythm Chest (Breasts) normal inspection/palpation of breasts Gastrointestinal (Abdomen) normal bowel sounds, soft, nontender, no hepatosplenomegaly Musculoskeletal no cyanosis or clubbing, extremities motor strength 5/5 Skin no rashes, warm and dry + incision (Clean,dry and intact) Neurologic patellar DTR's 2+ bilat, sensation intact moves all extremities Psychiatric A+Ox3, euthymic affect Orientation: alert and oriented x 3 Genitourinary normal external appearance Lymphatic no cervical or axillary lymphadenopathy Discharge Data Consultations 09/15/21 05:52 Consult Anesthesiology Stat Procedures Performed Operation Date: 09/15/21 07:30 Actual Procedures p Repeat Section - Ludy Kline MD, PhD Hospital Course (1) delivery delivered: POD #1 pt doing well no complaints continue day#1 care Discharged home on POD 2
[2021-09-15] MEDS: KETOROLAC 30 MG/ML VIAL IV PRN ×2 (09:11→18:12)
[2021-09-15] MEDS: SIMETHICONE 80 MG CHEW PO SCH ×3 (12:26→21:00)
[2021-09-15] MEDS ORDERED: LACTATED RINGER'S 500 ML IV PRN (12:46)
[2021-09-15] MEDS ORDERED: NALBUPHINE HCL INJ 10 MG/ML AMP IV PRN (12:46)
[2021-09-15] MEDS ORDERED: ePHEDrine sulfate 50 MG/ML AMP IV PRN (12:46)
[2021-09-15] MEDS ORDERED: NALOXONE HCL 1 MG in SODIUM CHLORIDE 0.9% 1000ML 1,000 ML IV PRN (12:46)
[2021-09-15] MEDS ORDERED: NALOXONE HCL 0.4 MG/1 ML VIAL/CARP IV PRN (12:46)
[2021-09-15] MEDS ORDERED: METOCLOPRAMIDE HCL 10 MG in SODIUM CHLORIDE 0.9% 50 ML IV PRN (12:46)
[2021-09-15] MEDS ORDERED: MoRPHine SULFATE PF 1 MG/ML 10 ML AMP/VIAL INT SPINAL ONE (12:46)
[2021-09-15] MEDS ORDERED: NALOXONE HCL 0.08 MG in SYRINGE 1.8 ML IV PRN (12:46)
[2021-09-15] MEDS ORDERED: PROMETHAZINE HCL 12.5 MG in SODIUM CHLORIDE 0.9% 50 ML IV PRN (12:50)
--- NOTE | 2021-09-15 12:51 | Anesthesiology Progress Note ---
Date of Service September 15, 2021 Anesthesia Post Procedure Vital Signs Vital Signs: Temp Pulse Pulse Resp BP BP Pulse Ox 09/15/21 11:00 36.6 C 65 18 123/86 100 09/15/21 10:50 36.6 C 18 09/15/21 10:44 65 133/60 09/15/21 10:39 67 100 09/15/21 10:37 72 131/59 L 09/15/21 10:34 67 100 09/15/21 10:29 66 100 09/15/21 10:26 70 124/66 09/15/21 10:24 69 100 09/15/21 10:20 16 09/15/21 10:19 66 100 09/15/21 10:16 65 117/70 09/15/21 10:14 68 99 09/15/21 10:10 66 117/63 09/15/21 10:09 70 98 09/15/21 10:04 67 97 09/15/21 10:03 63 89 L 09/15/21 09:59 69 99 09/15/21 09:56 69 136/60 09/15/21 09:54 70 99 09/15/21 09:53 78 92 09/15/21 09:50 18 09/15/21 09:48 70 99 09/15/21 09:47 81 91 09/15/21 09:43 89 88 L 09/15/21 09:42 86 93 09/15/21 09:40 16 09/15/21 09:38 76 98 09/15/21 09:36 81 102/59 L 09/15/21 09:33 77 99 09/15/21 09:28 80 99 09/15/21 09:26 85 132/64 09/15/21 09:23 83 98 09/15/21 09:20 16 09/15/21 09:19 88 132/65 09/15/21 09:18 73 92 09/15/21 09:13 75 100 09/15/21 09:10 16 09/15/21 09:08 74 98 09/15/21 09:06 76 110/57 L 09/15/21 09:03 88 94 09/15/21 09:00 86 16 91 09/15/21 08:58 73 99 09/15/21 08:56 68 101/55 L 09/15/21 08:53 68 113/69 99 09/15/21 08:51 68 105/63 09/15/21 08:50 35.8 C L 16 09/15/21 08:49 78 106/58 L 09/15/21 08:48 77 98 09/15/21 07:30 103 H 98 09/15/21 07:25 91 H 99 09/15/21 07:20 92 H 98 09/15/21 07:15 89 100 09/15/21 07:10 84 99 09/15/21 06:59 94 H 98 09/15/21 06:54 98 H 98 09/15/21 06:49 97 H 97 09/15/21 06:44 86 98 09/15/21 06:39 88 98 09/15/21 06:34 90 97 09/15/21 06:29 89 98 09/15/21 06:24 95 H 98 09/15/21 06:19 94 H 98 09/15/21 06:13 95 H 97 09/15/21 06:08 91 H 98 09/15/21 06:07 37.2 C 96 H 16 134/82 97 09/15/21 06:03 98 H 98 09/15/21 05:58 95 H 98 09/15/21 05:55 37.2 C 16 09/15/21 05:53 108 H 134/82 98 Pain Intensity Lower Abdomen: Pain Intensity: 3 Transfer of Care Handoff Completed per policy Notes Mental Status: alert / awake / arousable and participated in evaluation Patient Amnestic to Procedure: Yes Nausea / Vomiting: adequately controlled Pain: adequately controlled Airway Patency, RR, SpO2: stable & adequate BP & HR: stable & adequate Hydration State: stable & adequate Neuraxial Anesthesia: was administered and sensory block is resolving Anesthetic Complications: no major complications apparent
[2021-09-15] MEDS: HYDROmorphone INJ 0.5 MG/0.5 ML SYR IV PRN ×2 (12:58→20:43)
[2021-09-15] MEDS ORDERED: DC INTRASPINAL MORPHINE SCH (13:00)
[2021-09-15] MEDS ORDERED: NO NARCOTICS OR SEDATIVES SCH (13:00)
[2021-09-15] MEDS ORDERED: SODIUM CHLORIDE 0.9% 1000ML 1,000 ML IV SCH (13:00)
[2021-09-15] MEDS: DOCUSATE SODIUM 100 MG CAP PO SCH (21:00)
[2021-09-16] MEDS: KETOROLAC 30 MG/ML VIAL IV PRN (03:20)
[2021-09-16 06:42] LABS: Basophils # (auto) 0.03 K/uL (0-0.2); Basophils % (auto) 0.3 %; Eosinophils # (auto) 0.07 K/uL (0-0.5); Eosinophils % (auto) 0.6 %; Hematocrit (blood only) 33.4 % (37-47); Hemoglobin 11.1 g/dL (12.0-16.0); Immature Granulocytes # (auto) 0.13 K/uL (0.00-0.02); Immature Granulocytes % (auto) 1.1 %; Lymphocytes # (auto) 2.08 K/uL (1.2-3.4); Lymphocytes % (auto) 18.1 %; Mean Corpuscular Hemoglobin 30.7 pg (25-34); Mean Corpuscular Hgb Conc 33.2 g/dL (32-36); Mean Corpuscular Volume 92.5 fL (80-100); Mean Platelet Volume 11.9 fL (7.4-10.4); Monocytes % (auto) 6.1 %; Neutrophils # (auto) 8.51 K/uL (1.4-6.5); Neutrophils % (auto) 73.8 %; Platelet Count 153 K/uL (130-400); RDW Coefficient of Variation 14.2 % (11.5-14.5); RDW Standard Deviation 47.9 fL (36.4-46.3); Red Blood Count 3.61 M/uL (4.2-5.4); White Blood Count 11.52 K/uL (4.8-10.8)
[2021-09-16] MEDS: oxyCODONE/ACETAMINOPHEN 5mg/325mg TAB PO PRN ×3 (07:38→18:07)
--- NOTE | 2021-09-16 08:56 | Obstetrical Progress Note ---
Date of Service September 16, 2021 Assessment & Plan (1) delivery delivered: POD #1 pt doing well no complaints continue day#1 care Subjective Ambulation: ambulating normally Voiding: no voiding problems Passing Gas:: Yes Diet Tolerance:: clear liquids Lochia:: Small Feeding Type:: breast feeding Review of Systems All systems reviewed & are unremarkable except as noted in HPI & below Physical Exam Constitutional WD/WN, vitals as above well developed and well nourished Eyes PERRL, conjunctivae normal, anicteric sclerae ENMT external ear and nose normal, oropharynx normal Neck trachea midline, no thyromegaly Respiratory normal respiratory effort, lungs clear to auscultation Cardiovascular RRR, no murmur, no edema Chest (Breasts) normal inspection/palpation of breasts Gastrointestinal (Abdomen) normal bowel sounds, soft, nontender, no hepatosplenomegaly Musculoskeletal no cyanosis or clubbing, extremities motor strength 5/5 Skin no rashes, warm and dry + incision (Clean,dry and intact) Neurologic patellar DTR's 2+ bilat, sensation intact Psychiatric A+Ox3, euthymic affect Genitourinary normal external appearance Lymphatic no cervical or axillary lymphadenopathy Results & Data ([facility]) Vital Signs (Past 12 Hours) Vital Signs Temp Pulse Resp BP Pulse Ox 09/16/21 07:45 36.9 C 96 H 16 114/79 99 09/16/21 06:00 16 100 09/16/21 05:05 16 99 09/16/21 04:15 36.8 C 92 H 16 103/71 98 09/16/21 03:05 16 98 09/16/21 02:06 16 97 09/16/21 01:08 16 97 09/16/21 00:25 16 100 09/15/21 23:30 36.7 C 98 H 16 110/76 97 09/15/21 22:10 16 100 09/15/21 21:01 16 98
[2021-09-16] MEDS: DOCUSATE SODIUM 100 MG CAP PO SCH ×2 (09:27→21:29)
[2021-09-16] MEDS: SIMETHICONE 80 MG CHEW PO SCH ×4 (09:27→21:29)
[2021-09-16] MEDS: PRENATAL VITAMIN 1 TAB PO SCH (09:27)
[2021-09-16] MEDS: FERROUS SULFATE 325 MG TAB PO SCH (09:27)
[2021-09-16] MEDS: IBUPROFEN 600 MG TAB PO PRN ×3 (09:27→21:29)
[2021-09-16] MEDS ORDERED: bisacodyL 5 MG TABEC PO SCH (20:00)
[2021-09-17] MEDS: oxyCODONE/ACETAMINOPHEN 5mg/325mg TAB PO PRN ×4 (00:06→18:20)
[2021-09-17 06:25] LABS: Hematocrit (blood only) 34.6 % (37-47); Hemoglobin 10.8 g/dL (12.0-16.0)
[2021-09-17] MEDS: FERROUS SULFATE 325 MG TAB PO SCH (07:53)
[2021-09-17] MEDS: SIMETHICONE 80 MG CHEW PO SCH ×5 (07:53→23:30)
[2021-09-17] MEDS: DOCUSATE SODIUM 100 MG CAP PO SCH ×2 (07:53→23:30)
[2021-09-17] MEDS: PRENATAL VITAMIN 1 TAB PO SCH (07:53)
[2021-09-17] MEDS: IBUPROFEN 600 MG TAB PO PRN ×4 (07:53→23:30)
[2021-09-17] MEDS ORDERED: bisacodyL 10 MG SUPP PR PRN (08:35)
--- NOTE | 2021-09-17 09:36 | Obstetrical Progress Note ---
Date of Service September 17, 2021 Subjective Ambulation: ambulating normally Voiding: no voiding problems Passing Gas:: Yes Diet Tolerance:: regular diet Lochia:: Small Feeding Type:: bottle feeding Current Pain Level(1-10): 0 doing well. plans for d/c in AM Physical Exam Constitutional WD/WN, vitals as above abdomen soft and non-tender. incision c/d/i Skin no rashes, warm and dry no edema, neg Homna's Results & Data ([facility]) Vital Signs (Past 12 Hours) Vital Signs Temp Pulse Resp BP Pulse Ox 09/17/21 07:40 37.0 C 89 18 131/73 09/16/21 23:55 36.9 C 91 H 16 115/76 98 Laboratory Results Laboratory Results - last 24 hr 09/16/21 09/17/21 06:11 06:10 Hgb 10.8 L Hct 34.6 L Blood Type O Negative Antibody Screen Cancelled Screen Negative
[2021-09-18] MEDS: IBUPROFEN 600 MG TAB PO PRN ×2 (07:32→11:40)
[2021-09-18] MEDS: PRENATAL VITAMIN 1 TAB PO SCH (07:32)
[2021-09-18] MEDS: DOCUSATE SODIUM 100 MG CAP PO SCH (07:32)
[2021-09-18] MEDS: SIMETHICONE 80 MG CHEW PO SCH ×2 (07:32→11:39)
[2021-09-18] MEDS: FERROUS SULFATE 325 MG TAB PO SCH (07:32)
[2021-09-18] MEDS: oxyCODONE/ACETAMINOPHEN 5mg/325mg TAB PO PRN ×2 (07:33→11:39)
--- NOTE | 2021-09-18 10:38 | Obstetrical Progress Note ---
Date of Service September 18, 2021 Assessment & Plan (1) delivery delivered: POD #3 pt doing well no complaints wishes to be discharged home Results & Data ([facility]) Vital Signs (Past 12 Hours) Vital Signs Temp Pulse Resp BP Pulse Ox 09/18/21 08:55 37.1 C 93 H 18 135/68 09/17/21 23:30 36.6 C 80 20 138/92 98
== END 2021-09-18 12:25 | disposition home or self-care (01) | DRG 788 ==
LOC: 4S1 05:44 → EDSTATUS 07:30 → 4E2 12:00